=== PATIENT | female | born 1950 | race Caucasian/White ===

== ENCOUNTER → 2018-01-13 13:24 | Outpatient (CLI) | payer MEDICARE, OTHER, SELFPAY ==
[2018-01-13 13:58] LABS: Add Manual Diff / Slide Review NO; Basophils Percent Auto 0.5 % (0-2); Eosinophils Percent Auto 2.2 % (2-4); Hematocrit 40.7 % (36-46); Hemoglobin 13.7 g/dL (12.0-16.0); Lymphocytes Percent Auto 34.6 % (25-40); Mean Corpuscular HGB Conc 33.6 % (30-36); Mean Corpuscular Volume 92.3 fL (80-100); Monocytes Percent Auto 7.4 % (3-14); Neutrophils Absolute Auto 2300 /uL (3000-5900); Neutrophils Percent Auto 55.3 % (50-75); Platelet Count 155 X10^3/uL (150-400); Red Blood Cell Count 4.41 X10^6/uL (4.0-5.2); Red Cell Distribution Width 14.1 % (11.6-14.8); White Blood Cell Count 4.2 X10^3/uL (4.5-11.0)
[2018-01-13 14:23] LABS: Alanine Aminotransferase 30 IU/L (9-52); Albumin 4.4 g/dL (3.5-5.0); Albumin Globulin Ratio 1.7 (1.0-2.8); Alkaline Phosphatase 59 U/L (38-126); Aspartate Aminotransferase 29 IU/L (14-36); BUN Creatinine Ratio 22.5 (6-22); Bilirubin Total 0.6 mg/dL (0.2-1.3); Blood Urea Nitrogen 18 mg/dL (7-17); Calcium 9.4 mg/dL (8.4-10.2); Carbon Dioxide 31 mmol/L (22-32); Chloride 99 mmol/L (98-107); Estimated Glomerular Filt Rate > 60.0 mL/min (>60); Globulin 2.6 g/dL (1.7-4.1); Glucose 142 mg/dL (80-110); HEMOLYSIS < 15 (0-50); Potassium 4.4 mmol/L (3.4-5.1); Sodium 141 mmol/L (137-145)
[2018-01-13 14:28] LABS: HEMOLYSIS < 15 (0-50); Iron 139 ug/dL (37-170)
[2018-01-13 14:39] LABS: Percent Iron Saturation 44 % (15-50); Total Iron Binding Capacity 314 ug/dL (265-497); Transferrin 255 mg/dL (206-381)
[2018-01-15 15:16] LABS: Alpha Fetoprotein 4.8 ng/mL (< 6.1)
== END ==
PROVIDERS: Nurse Practitioner Gerontology; Family Provider Internal Medicine; PCP Internal Medicine; Visit Provider Internal Medicine
DX: E83.110 Hereditary hemochromatosis (principal)
CPT/HCPCS: 36415; 80053; 82105; 83540; 83550; 85025

== ENCOUNTER → 2018-03-22 13:04 | Outpatient (CLI) | payer MEDICARE, OTHER, SELFPAY ==
[2018-03-22 13:20] LABS: Add Manual Diff / Slide Review NO; Basophils Percent Auto 0.4 % (0-2); Eosinophils Percent Auto 1.1 % (2-4); Hematocrit 41.6 % (36-46); Lymphocytes Percent Auto 26.9 % (25-40); Mean Corpuscular HGB Conc 33.6 % (30-36); Mean Corpuscular Hemoglobin 31.6 PG (26-34); Mean Corpuscular Volume 94.1 fL (80-100); Monocytes Percent Auto 8.6 % (3-14); Neutrophils Absolute Auto 2800 /uL (3000-5900); Platelet Count 157 X10^3/uL (150-400); Red Blood Cell Count 4.42 X10^6/uL (4.0-5.2); Red Cell Distribution Width 13.5 % (11.6-14.8); White Blood Cell Count 4.5 X10^3/uL (4.5-11.0)
[2018-03-22 13:38] LABS: Alanine Aminotransferase 25 IU/L (9-52); Albumin 4.4 g/dL (3.5-5.0); Alkaline Phosphatase 57 U/L (38-126); Aspartate Aminotransferase 29 IU/L (14-36); BUN Creatinine Ratio 24.3 (6-22); Bilirubin Total 0.8 mg/dL (0.2-1.3); Blood Urea Nitrogen 17 mg/dL (7-17); Calcium 9.6 mg/dL (8.4-10.2); Carbon Dioxide 34 mmol/L (22-32); Chloride 101 mmol/L (98-107); Estimated Glomerular Filt Rate > 60.0 mL/min (>60); Globulin 2.2 g/dL (1.7-4.1); Glucose 135 mg/dL (80-110); HEMOLYSIS < 15 (0-50); Potassium 4.8 mmol/L (3.4-5.1); Sodium 143 mmol/L (137-145); Total Protein 6.6 g/dL (6.3-8.2)
[2018-03-22 13:44] LABS: HEMOLYSIS 16 (0-50); Iron 172 ug/dL (37-170)
[2018-03-22 13:54] LABS: Percent Iron Saturation 59 % (15-50); Total Iron Binding Capacity 291 ug/dL (265-497); Transferrin 241 mg/dL (206-381)
[2018-03-22 15:24] LABS: Zero Check Sebra Scale 0
[2018-03-22 15:25] LABS: 585 Gram Check Y; Amount Collected in g 386; Postdiastolic BP 84; Postsystolic BP 130; Prediastolic 82; Presystolic 135; Pulse 68; Site of phlebotomy RAC; Swelling N
[2018-03-22 15:26] LABS: Dizziness LIGHTHEADED
[2018-03-22 15:27] LABS: Therapeutic Phleb Comment JUICE GIVEN
[2018-03-26 14:34] LABS: Alpha Fetoprotein 4.9 ng/mL (< 6.1)
== END ==
PROVIDERS: Family Provider Internal Medicine; PCP Internal Medicine; Visit Provider Nurse Practitioner Gerontology
DX: E83.110 Hereditary hemochromatosis (principal)
CPT/HCPCS: 36415; 80053; 82105; 83540; 83550; 85025; 99195

== ENCOUNTER → 2018-06-28 12:48 | Outpatient (CLI) | payer MEDICARE, OTHER, SELFPAY ==
[2018-06-28 13:07] LABS: Add Manual Diff / Slide Review NO; Basophils Percent Auto 0.6 % (0-2); Eosinophils Percent Auto 1.8 % (2-4); Hematocrit 39.4 % (36-46); Hemoglobin 12.8 g/dL (12.0-16.0); Lymphocytes Percent Auto 27.7 % (25-40); Mean Corpuscular HGB Conc 32.5 % (30-36); Mean Corpuscular Hemoglobin 29.7 PG (26-34); Mean Corpuscular Volume 91.1 fL (80-100); Monocytes Percent Auto 7.4 % (3-14); Neutrophils Absolute Auto 2600 /uL (3000-5900); Neutrophils Percent Auto 62.5 % (50-75); Platelet Count 172 X10^3/uL (150-400); Red Blood Cell Count 4.33 X10^6/uL (4.0-5.2); Red Cell Distribution Width 13.3 % (11.6-14.8); White Blood Cell Count 4.1 X10^3/uL (4.5-11.0)
[2018-06-28 13:19] LABS: Alanine Aminotransferase 34 IU/L (9-52); Albumin 4.5 g/dL (3.5-5.0); Albumin Globulin Ratio 1.8 (1.0-2.8); Alkaline Phosphatase 58 U/L (38-126); Aspartate Aminotransferase 37 IU/L (14-36); BUN Creatinine Ratio 22.5 (6-22); Bilirubin Total 0.8 mg/dL (0.2-1.3); Blood Urea Nitrogen 18 mg/dL (7-17); Calcium 9.5 mg/dL (8.4-10.2); Carbon Dioxide 29 mmol/L (22-32); Chloride 102 mmol/L (98-107); Estimated Glomerular Filt Rate > 60.0 mL/min (>60); Globulin 2.5 g/dL (1.7-4.1); Glucose 127 mg/dL (80-110); HEMOLYSIS < 15 (0-50); Potassium 4.6 mmol/L (3.4-5.1); Sodium 142 mmol/L (137-145)
[2018-06-28 13:26] LABS: HEMOLYSIS < 15 (0-50); Iron 139 ug/dL (37-170)
[2018-06-28 13:37] LABS: Percent Iron Saturation 43 % (15-50); Total Iron Binding Capacity 323 ug/dL (265-497); Transferrin 280 mg/dL (206-381)
[2018-06-30 13:48] LABS: Alpha Fetoprotein 4.2 ng/mL (< 6.1)
== END ==
PROVIDERS: Family Provider Internal Medicine; PCP Internal Medicine; Visit Provider Nurse Practitioner Gerontology
DX: E83.110 Hereditary hemochromatosis (principal)
CPT/HCPCS: 36415; 80053; 82105; 83540; 83550; 85025

== ENCOUNTER → 2018-07-04 16:15 | Outpatient (CLI) | payer MEDICARE, OTHER, SELFPAY | PROVIDERS: PCP Internal Medicine; Visit Provider Internal Medicine Hematology & Oncology ==

== ENCOUNTER → 2018-07-30 10:26 | Outpatient (CLI) | payer MEDICARE, OTHER, SELFPAY ==
--- NOTE | 2018-07-30 | DI.MG.S_ITS ---
UNILATERAL RIGHT DIGITAL SCREENING MAMMOGRAM 3D/2D WITH CAD POST MASTECTOMY: 07/30/2018 CLINICAL: Routine screening. Personal history of left breast cancer. Family history of breast cancer. Comparison is made to exams dated: 05/01/2015 mammogram, 07/06/2017 mammogram, and 07/07/2016 mammogram - [facility]. The tissue of right breast is heterogeneously dense. This may lower the sensitivity of mammography. Current study was also evaluated with a Computer Aided Detection (CAD) system. No significant masses, calcifications, or other findings are seen in the breast. There has been no significant interval change. IMPRESSION: NEGATIVE There is no mammographic evidence of malignancy. A 1 year screening mammogram is recommended. This exam was interpreted at Station ID: [id number]. NOTE: For mammograms, a report in lay terms will be sent to the patient. Approximately 15% of breast malignancies will not be visualized mammographically. In the management of a palpable breast mass, a negative mammogram must not discourage biopsy of a clinically suspicious lesion. Electronically Signed By: Ely de la cruz/ivet:08/01/2018 10:44:33 copy to: [facility] letter sent: Normal Exam ACR BI-RADS Category 1: Negative 3341F
== END ==
PROVIDERS: PCP Internal Medicine; Visit Provider Internal Medicine Hematology & Oncology
DX: Z12.31 Encounter for screening mammogram for malignant neoplasm of breast (principal); Z85.3 Personal history of malignant neoplasm of breast; Z80.3 Family history of malignant neoplasm of breast
CPT/HCPCS: 77063; 77067

== ENCOUNTER → 2018-10-27 13:38 | Outpatient (CLI) | payer MEDICARE, OTHER, SELFPAY ==
[2018-10-27 14:41] LABS: Add Manual Diff / Slide Review NO; Basophils Absolute Auto 0 /uL (0-100); Eosinophils Absolute Auto 100 /uL (0-450); Eosinophils Percent Auto 2.4 % (2-4); Hematocrit 43.1 % (36-46); Hemoglobin 14.2 g/dL (12.0-16.0); Lymphocytes Absolute Auto 1400 /uL (1100-4500); Lymphocytes Percent Auto 34.9 % (25-40); Mean Corpuscular HGB Conc 32.9 % (30-36); Mean Corpuscular Hemoglobin 30.1 PG (26-34); Mean Corpuscular Volume 91.6 fL (80-100); Monocytes Absolute Auto 300 /uL (0-900); Neutrophils Absolute Auto 2200 /uL (1500-7000); Neutrophils Percent Auto 53.7 % (50-75); Platelet Count 157 X10^3/uL (150-400); Red Cell Distribution Width 15.3 % (11.6-14.8); White Blood Cell Count 4.1 X10^3/uL (4.5-11.0)
[2018-10-27 15:30] LABS: Iron 120 ug/dL (37-170)
[2018-10-27 16:22] LABS: Alanine Aminotransferase 36 IU/L (9-52); Albumin 4.4 g/dL (3.5-5.0); Albumin Globulin Ratio 1.8 (1.0-2.8); Alkaline Phosphatase 59 U/L (38-126); Aspartate Aminotransferase 29 IU/L (14-36); BUN Creatinine Ratio 23.3 (6-22); Bilirubin Total 0.7 mg/dL (0.2-1.3); Blood Urea Nitrogen 21 mg/dL (7-17); Calcium 9.4 mg/dL (8.4-10.2); Carbon Dioxide 30 mmol/L (22-32); Chloride 100 mmol/L (98-107); Estimated Glomerular Filt Rate > 60.0 mL/min (>60); Globulin 2.4 g/dL (1.7-4.1); Glucose 135 mg/dL (80-110); HEMOLYSIS < 15 (0-50); Potassium 4.2 mmol/L (3.4-5.1); Sodium 138 mmol/L (137-145); Total Protein 6.8 g/dL (6.3-8.2)
[2018-10-27 16:58] LABS: Ferritin 17.4 ng/mL (11.1-264)
== END ==
PROVIDERS: PCP Internal Medicine; Visit Provider Internal Medicine Hematology & Oncology
DX: D05.10 Intraductal carcinoma in situ of unspecified breast (principal)
CPT/HCPCS: 36415; 80053; 82728; 83540; 85025

== ENCOUNTER → 2019-04-25 16:42 | Outpatient (ROUT) | payer MEDICARE, OTHER, SELFPAY ==
[2019-04-25 17:06] LABS: Alanine Aminotransferase 28 IU/L (9-52); Albumin 4.1 g/dL (3.5-5.0); Alkaline Phosphatase 66 U/L (38-126); Aspartate Aminotransferase 32 IU/L (14-36); BUN Creatinine Ratio 27.1 (6-22); Blood Urea Nitrogen 19 mg/dL (7-17); Calcium 9.6 mg/dL (8.4-10.2); Carbon Dioxide 33 mmol/L (22-32); Chloride 103 mmol/L (98-107); Cholesterol 157 mg/dL (140-199); Estimated Glomerular Filt Rate > 60.0 mL/min (>60); Glucose 114 mg/dL (80-110); HDL Cholesterol 72 mg/dL (40-60); LDL Cholesterol Calculated 72 mg/dL (<100); Potassium 4.4 mmol/L (3.4-5.1); Sodium 141 mmol/L (137-145); Triglycerides 67 mg/dL (35-150)
[2019-04-25 18:19] LABS: HEMOLYSIS < 15 (0-50); Vitamin B12 628 pg/mL (239-931)
[2019-04-27 22:30] LABS: Albumin 4.1 g/dL (3.8-4.8); Alpha 1 Globulin 0.2 g/dL (0.2-0.3); Alpha 2 Globulin 0.7 g/dL (0.5-0.9); Beta 1 Globulin 0.4 g/dL (0.4-0.6); Gamma Globulin 0.6 g/dL (0.8-1.7); Protein, Total 6.3 g/dL (6.1-8.1)
[2019-04-29 18:59] LABS: Albumin 100 %; Protein/ Creatinine Ratio 68 mg/g creat (21-161); Total Urine Protein 4 mg/dL (5-24); Urine Creatinine, Random 59 mg/dL (20-275)
== END ==
PROVIDERS: Family Provider Internal Medicine; Visit Provider Internal Medicine
DX: R74.9 Abnormal serum enzyme level, unspecified (principal); E78.00 Pure hypercholesterolemia, unspecified; G58.8 Other specified mononeuropathies; E11.9 Type 2 diabetes mellitus without complications
CPT/HCPCS: 80048; 80061; 82040; 82247; 82607; 84075; 84155; 84156; 84165; 84166; 84450; 84460

== ENCOUNTER → 2019-08-15 15:49 | Outpatient (ROUT) | payer MEDICARE, OTHER, SELFPAY ==
[2019-08-15 15:52] LABS: RBC Urine None Seen (0-5/HPF)
[2019-08-15 15:56] LABS: Appearance Urine UA CLEAR; Bilirubin Urine UA NEGATIVE (NEGATIVE); Color Urine UA YELLOW; Glucose Urine UA NEGATIVE (Negative); Ketones Urine UA NEGATIVE (NEGATIVE); Leukocyte Esterase Urine UA NEGATIVE (NEGATIVE); Nitrite Urine UA NEGATIVE (Negative); Occult Blood Urine UA NEGATIVE (Negative); Protein Urine UA NEGATIVE (Negative); Urobilinogen Urine UA 0.2 E.U./dL (0.2)
[2019-08-15 16:07] LABS: pH Urine UA 6.5 (4.5-8.0)
[2019-08-15 16:08] LABS: Bacteria Urine Few (2-10); Squamous Epithelial Cell Urine 0-1 /HPF (0-5/HPF); WBC Urine 1-5/HPF (0-5/HPF)
[2019-08-15 17:03] LABS: BUN Creatinine Ratio 24.3 (6-22); Blood Urea Nitrogen 17 mg/dL (7-17); Calcium 9.6 mg/dL (8.4-10.2); Carbon Dioxide 30 mmol/L (22-32); Chloride 101 mmol/L (98-107); Estimated Glomerular Filt Rate > 60.0 mL/min (>60); Glucose 119 mg/dL (80-110); HEMOLYSIS 27 (0-50); Potassium 4.1 mmol/L (3.4-5.1); Sodium 139 mmol/L (137-145)
[2019-08-15 17:10] LABS: Potassium Urine Random 17.4 mmol/L
== END ==
PROVIDERS: Family Provider Internal Medicine; PCP Internal Medicine; Visit Provider Internal Medicine
DX: R39.15 Urgency of urination (principal)
CPT/HCPCS: 80048; 81001; 84133; 87077; 87086; 87186

== ENCOUNTER → 2019-08-16 09:35 | Outpatient (CLI) | payer MEDICARE, OTHER, SELFPAY ==
--- NOTE | 2019-08-16 | DI.US.S_ITS ---
PROCEDURE: US RENAL COMPLETE INDICATIONS: URINARY URGENCY TECHNIQUE: Real-time scanning was performed of the kidneys and bladder, with image documentation. COMPARISON: None. FINDINGS: Kidneys: Kidneys are normal in size. Right kidney measures 9.1 cm long; left kidney measures 11.0 cm long. Right renal cortical thickness is 1.0 cm; left renal cortical thickness is 1.1 cm. Renal cortical echotexture is normal. No hydronephrosis or nephrolithiasis. No suspicious solid mass lesions. Bladder: Pre-void bladder volume is 69 mL. Post-void residual is 0 mL. Pre-void images demonstrate no intraluminal masses or stones. On pre-void images, bilateral ureteral jets are noted with color Doppler interrogation. (Of note, ureteral jets may not be detectable in up to 25% of cases due to insufficient differences in specific gravity between ureteral and bladder urine). Miscellaneous: No free pelvic fluid. IMPRESSION: The no hydronephrosis or nephrolithiasis found, normal bladder function. Dictated by: Josh Arreola M.D. on 08/16/2019 at 14:38 Approved by: Josh Arreola M.D. on 08/16/2019 at 14:39
== END ==
PROVIDERS: PCP Internal Medicine; Visit Provider Internal Medicine
DX: R39.15 Urgency of urination (principal)
CPT/HCPCS: 76770

== ENCOUNTER → 2019-10-05 08:47 | Outpatient (CLI) | payer MEDICARE, OTHER, SELFPAY ==
--- NOTE | 2019-10-05 08:48 | DI.MG.S_ITS ---
UNILATERAL RIGHT DIGITAL SCREENING MAMMOGRAM 3D/2D WITH CAD POST MASTECTOMY: 10/05/2019 CLINICAL: Routine screening. Personal history of left breast cancer. Family history of breast cancer. Comparison is made to exams dated: 07/30/2018 mammogram - [facility], 07/06/2017 mammogram, and 07/07/2016 mammogram - [facility]. The tissue of right breast is heterogeneously dense. This may lower the sensitivity of mammography. Current study was also evaluated with a Computer Aided Detection (CAD) system. No significant masses, calcifications, or other findings are seen in the breast. There has been no significant interval change. IMPRESSION: NEGATIVE There is no mammographic evidence of malignancy. A 1 year screening mammogram is recommended. This exam was interpreted at Station ID: [id number]. NOTE: For mammograms, a report in lay terms will be sent to the patient. Approximately 15% of breast malignancies will not be visualized mammographically. In the management of a palpable breast mass, a negative mammogram must not discourage biopsy of a clinically suspicious lesion. Electronically Signed By: Yasmin mcfarlane/ivet:10/05/2019 16:43:58 copy to: [facility] letter sent: Normal Exam ACR BI-RADS Category 1: Negative 3341F
== END ==
PROVIDERS: PCP Internal Medicine; Referring Provider Internal Medicine; Visit Provider Internal Medicine Hematology & Oncology
DX: Z12.31 Encounter for screening mammogram for malignant neoplasm of breast (principal); Z86.000 Personal history of in-situ neoplasm of breast; Z80.3 Family history of malignant neoplasm of breast
CPT/HCPCS: 77063; 77067

== ENCOUNTER → 2019-12-12 10:12 | Outpatient (CLI) | payer MEDICARE, OTHER, SELFPAY ==
[2019-12-12 10:30] LABS: Add Manual Diff / Slide Review NO; Basophils Absolute Auto 0 /uL (0-100); Basophils Percent Auto 0.8 % (0-2); Eosinophils Absolute Auto 100 /uL (0-450); Eosinophils Percent Auto 3.1 % (2-4); Hematocrit 42.9 % (36-46); Hemoglobin 14.8 g/dL (12.0-16.0); Lymphocytes Absolute Auto 1300 /uL (1100-4500); Lymphocytes Percent Auto 32.2 % (25-40); Mean Corpuscular HGB Conc 34.6 % (30-36); Mean Corpuscular Hemoglobin 33.4 PG (26-34); Mean Corpuscular Volume 96.5 fL (80-100); Monocytes Absolute Auto 400 /uL (0-900); Neutrophils Absolute Auto 2100 /uL (1500-7000); Neutrophils Percent Auto 54.9 % (50-75); Platelet Count 137 X10^3/uL (150-400); Red Blood Cell Count 4.44 X10^6/uL (4.0-5.2); Red Cell Distribution Width 12.8 % (11.6-14.8); White Blood Cell Count 3.9 X10^3/uL (4.5-11.0)
[2019-12-12 10:41] LABS: Alanine Aminotransferase 28 IU/L (<35); Albumin 4.4 g/dL (3.5-5.0); Albumin Globulin Ratio 1.7 (1.0-2.8); Alkaline Phosphatase 70 U/L (38-126); Aspartate Aminotransferase 35 IU/L (14-36); BUN Creatinine Ratio 26.3 (6-22); Bilirubin Total 0.7 mg/dL (0.2-1.3); Blood Urea Nitrogen 20 mg/dL (7-17); Calcium 9.5 mg/dL (8.4-10.2); Carbon Dioxide 33 mmol/L (22-32); Chloride 103 mmol/L (98-107); Estimated Glomerular Filt Rate > 60.0 mL/min (>60); Globulin 2.6 g/dL (1.7-4.1); Glucose 96 mg/dL (80-110); HEMOLYSIS < 15 (0-50); Potassium 4.7 mmol/L (3.4-5.1); Sodium 140 mmol/L (137-145)
[2019-12-12 10:54] LABS: HEMOLYSIS < 15 (0-50); Iron 152 ug/dL (37-170)
[2019-12-12 11:05] LABS: Percent Iron Saturation 52 % (15-50); Total Iron Binding Capacity 291 ug/dL (265-497); Transferrin 236 mg/dL (206-381)
[2019-12-12 11:35] LABS: Ferritin 27 ng/mL (11-264)
[2020-10-03 10:08] LABS: Add Manual Diff / Slide Review NO; Basophils Absolute Auto 0 /uL (0-100); Eosinophils Absolute Auto 200 /uL (0-450); Eosinophils Percent Auto 3.6 % (2-4); Hematocrit 42.2 % (36-46); Hemoglobin 14.2 g/dL (12.0-16.0); Lymphocytes Absolute Auto 1400 /uL (1100-4500); Lymphocytes Percent Auto 31.5 % (25-40); Mean Corpuscular HGB Conc 33.6 % (30-36); Mean Corpuscular Hemoglobin 32.3 PG (26-34); Mean Corpuscular Volume 96.3 fL (80-100); Monocytes Absolute Auto 400 /uL (0-900); Monocytes Percent Auto 8.7 % (3-14); Neutrophils Absolute Auto 2400 /uL (1500-7000); Neutrophils Percent Auto 55.2 % (50-75); Platelet Count 158 X10^3/uL (150-400); Red Blood Cell Count 4.39 X10^6/uL (4.0-5.2); Red Cell Distribution Width 12.7 % (11.6-14.8); White Blood Cell Count 4.4 X10^3/uL (4.5-11.0)
[2020-10-03 10:28] LABS: HEMOLYSIS < 15 (0-50); Iron 140 ug/dL (37-170)
[2020-10-03 10:39] LABS: Percent Iron Saturation 47 % (15-50); Total Iron Binding Capacity 301 ug/dL (265-497); Transferrin 215 mg/dL (206-381)
[2020-10-03 11:12] LABS: Alanine Aminotransferase 33 IU/L (<35); Albumin 4.2 g/dL (3.5-5.0); Albumin Globulin Ratio 1.6 (1.0-2.8); Alkaline Phosphatase 66 U/L (38-126); Aspartate Aminotransferase 39 IU/L (14-36); BUN Creatinine Ratio 31.1 (6-22); Bilirubin Total 0.8 mg/dL (0.2-1.3); Blood Urea Nitrogen 23 mg/dL (7-17); Calcium 9.6 mg/dL (8.4-10.2); Carbon Dioxide 31 mmol/L (22-32); Chloride 104 mmol/L (98-107); Estimated Glomerular Filt Rate > 60.0 mL/min (>60); Globulin 2.6 g/dL (1.7-4.1); Glucose 102 mg/dL (80-110); HEMOLYSIS < 15 (0-50); Potassium 4.4 mmol/L (3.4-5.1); Sodium 139 mmol/L (137-145); Total Protein 6.8 g/dL (6.3-8.2)
[2020-10-03 11:48] LABS: Ferritin 45 ng/mL (11-264)
== END ==
PROVIDERS: PCP Internal Medicine; Referring Provider Internal Medicine Hematology & Oncology; Visit Provider Internal Medicine Hematology & Oncology
DX: D05.10 Intraductal carcinoma in situ of unspecified breast (principal)
CPT/HCPCS: 36415; 80053; 82728; 83540; 83550; 85025

== ENCOUNTER → 2020-10-07 15:40 | Outpatient (CLI) | payer MEDICARE, OTHER, SELFPAY ==
[2020-10-07 16:07] LABS: Bacteria Urine None Seen
[2020-10-07 18:44] LABS: Appearance Urine UA CLEAR; Bilirubin Urine UA NEGATIVE (NEGATIVE); Color Urine UA YELLOW; Glucose Urine UA NEGATIVE (Negative); Ketones Urine UA NEGATIVE (NEGATIVE); Leukocyte Esterase Urine UA NEGATIVE (NEGATIVE); Nitrite Urine UA NEGATIVE (Negative); Occult Blood Urine UA NEGATIVE (Negative); Protein Urine UA NEGATIVE (Negative); Urobilinogen Urine UA 0.2 E.U./dL (0.2)
[2020-10-07 18:56] LABS: RBC Urine 0-1/HPF (0-5/HPF); Squamous Epithelial Cell Urine 0-1 /HPF (0-5/HPF); WBC Urine 0-1/HPF (0-5/HPF)
== END ==
PROVIDERS: PCP Internal Medicine; Referring Provider Internal Medicine; Visit Provider Internal Medicine
DX: N39.0 Urinary tract infection, site not specified (principal)
CPT/HCPCS: 81001; 87086

== ENCOUNTER → 2020-10-17 11:04 | Outpatient (CLI) | payer MEDICARE, OTHER, SELFPAY ==
--- NOTE | 2020-10-17 11:07 | DI.MG.S_ITS ---
UNILATERAL RIGHT DIGITAL SCREENING MAMMOGRAM 3D/2D WITH CAD: 10/17/2020 CLINICAL: Routine screening. Personal history of left breast cancer. Family history of breast cancer. Comparison is made to exams dated: 10/05/2019 mammogram, 07/30/2018 mammogram - [facility], and 07/06/2017 mammogram - [facility]. The tissue of right breast is heterogeneously dense. This may lower the sensitivity of mammography. Current study was also evaluated with a Computer Aided Detection (CAD) system. There are mole markers on the right breast. No significant masses, calcifications, or other findings are seen in the breast. There has been no significant interval change. IMPRESSION: NEGATIVE There is no mammographic evidence of malignancy. A 1 year screening mammogram is recommended. This exam was interpreted at Station ID: [id number]. NOTE: For mammograms, a report in lay terms will be sent to the patient. Approximately 15% of breast malignancies will not be visualized mammographically. In the management of a palpable breast mass, a negative mammogram must not discourage biopsy of a clinically suspicious lesion. Electronically Signed By: Tima De Souza acr/penrad:10/17/2020 12:05:56 copy to: RUSH CONSTANTINO letter sent: Normal Exam ACR BI-RADS Category 1: Negative 3341F
== END ==
PROVIDERS: PCP Internal Medicine; Referring Provider Internal Medicine; Visit Provider Internal Medicine
DX: Z12.31 Encounter for screening mammogram for malignant neoplasm of breast; Z85.3 Personal history of malignant neoplasm of breast; Z80.3 Family history of malignant neoplasm of breast; M81.0 Age-related osteoporosis without current pathological fracture; Z78.0 Asymptomatic menopausal state; Z90.722 Acquired absence of ovaries, bilateral; E11.9 Type 2 diabetes mellitus without complications; Z82.62 Family history of osteoporosis
CPT/HCPCS: 77063; 77067; 77080

== ENCOUNTER → 2020-11-05 18:43 | Outpatient (ROUT) | payer MEDICARE, OTHER, SELFPAY | PROVIDERS: PCP Internal Medicine; Visit Provider Internal Medicine | DX: N39.0 Urinary tract infection, site not specified (principal) | CPT/HCPCS: 87077; 87086 ==

== ENCOUNTER 2021-04-15 16:00 | Outpatient (RCR) | payer MEDICARE, OTHER, SELFPAY ==
--- NOTE | 2021-02-18 16:00 | PT.OIE ---
Current Diagnoses Unspecified urinary incontinence (02/18/21) Past Medical History (Last Updated 05/30/20 @ 11:51 by Jessica Herrera MD) Fibroids Heavy menstrual period Herpes Osteopenia (~1997) Psoriasis (~1962) Restless leg syndrome (~1975) Rosacea (~1962) Tinnitus (~2007) Urgency of urination Vertigo Past Surgical History (Last Reviewed 05/30/20 @ 11:50 by Jessica Herrera MD) Anesthesia Breast cancer (~1997) Pseudomonas infection (~2000) Status post hysterectomy (~1996) Status post partial mastectomy (~1999) Visit Care Team Role Provider Type Evan Mott MD Attending Provider Physician Family Provider Primary Care Provider Referring Provider Specialty: Internal Medicine Address: [address] [place] [address], [facility] Email: [email or web address] Physical Therapy Initial Evaluation PT-OP-A Visit Information Start: 02/18/21 08:49 Freq: Status: Active Protocol: Document 02/18/21 16:00 [facility] (Rec: 02/18/21 16:08 [facility] [id number]) Out-Patient Physical Therapy Visit Information Visit Information Visit Type Initial Evaluation Visit Start Time 16:00 Visit Stop Time 16:45 Total Visit Minutes 45 Visit Number 1 Evaluation Information Evaluation Date 02/18/21 PT-OP-B Current Condition Start: 02/18/21 08:49 Freq: Status: Active Protocol: Document 02/18/21 16:00 [facility] (Rec: 02/18/21 16:45 [facility] [id number]) Current Condition History of Current Condition Onset Date spring Current Complaints urinary urgency and leaking with a strong urge to void History of Current Condition she had been going to strength training 2 xms per week and then she stopped doing the exercise with covid. She also did yoga two times per week. She has been hiking but did take a fall onto the right knee. Her leaking is all with urgency. When she really gets the urge is when she is drinking lots of water. She had gotten her self dehydrated in 2018. She is working now on drinking 6-8 glasses per water per day. She is now taking DHEA and estradiol. She had a hysterectomy at 48 years old. In December she felt like she had what she thought was a bladder infection but it was cultured and negative but 6 monthsl ater she was cultured again and it was positive. This caused bladder aggravation at night . Acupuncture really helped with this as it was waking her up every 3 hours. SHe hasn't had any bladder pain. Treatment Goals Patient/Caregiver Goals pts goals include eliminating urinary urgency and leakage with urgency PT-OP-C Subjective Start: 02/18/21 08:49 Freq: Status: Active Protocol: Document 02/18/21 16:00 [facility] (Rec: 02/18/21 16:09 [facility] [id number]) Patient Questionnaires Pelvic Pain and Urgency/Frequency Patient Symptom Scale Pelvic Pain Score 13 PT-OP-I Pelvic Floor Start: 02/18/21 08:49 Freq: Status: Active Protocol: Document 02/18/21 16:00 [facility] (Rec: 02/18/21 16:10 [facility] [id number]) Pelvic Floor Assessment Urine Pelvic Floor Surgery Yes: hysterectomy Urinary Symptoms Urge Sensation Other Urinary Symptoms leakage with a full bladder, strong urge to go Leakage Size Small Urine Pad Type Panty Liner Pelvic Clock Pelvic Clock 12-3 Tenderness Pelvic Clock 3-6 Guarding,Tenderness Pelvic Clock Other tightness and guarding of the left lateral wall of the levator ani, tenderness on the left side of the urethra Contraction Ability Manual Muscle Testing Left 3 Manual Muscle Testing Right 3 Manual Muscle Testing Anterior 3 Manual Muscle Testing Posterior 3 PT-OP-Q Treatments Start: 02/18/21 08:49 Freq: Status: Active Protocol: Document 02/18/21 16:00 [facility] (Rec: 02/18/21 17:55 [facility] [id number]) Therapeutic Exercises Supine Exercises single knee to chest stretch Reps/Minutes 1-2 reps with 1 min hold modified pelvic floor squat Reps/Minutes 1-2 reps holding 1-2 min Comments in supine pelvic floor contract relax Reps/Minutes 10 reps holding 5-10 seconds and relaxing 10 seconds Self-Care/Home Management Treatment Education Other Education urge deference technique taught for home PT-OP-T Assessment and Plan Start: 02/18/21 08:49 Freq: Status: Active Protocol: Document 02/18/21 16:00 [facility] (Rec: 02/25/21 14:11 [facility] [id number]) Physical Therapy Assessment Rehab Potential Rehabilitation Potential Excellent Evaluation Complexity Number of Personal Factors/Comorbidities 0 Number of Body Systems Impaired 1-2 Clinical Presentation at Evaluation Stable Impairments Impairments Activity Tolerance,Functional Activities,Strength,Tone Goals pt is able to complete a hike without leaking Impairment leaking with walking and hiking due to strong urge to void Disaster Response Director Goal (LTG) Eve is able to hike 4-5 miles without c/o leaking LTG Duration 8 weeks Decrease left lateral wall of the levator ani muscle guarding and increased tone Impairment muscle guarding and increased tone on the left lateral wall of the levator Disaster Response Director Goal (LTG) Eve is able to work on hip stretches and stretches that help relax the pelvic floor to decrease muscle guarding and spasm and improve voiding ability LTG Duration 8 weeks Pt is no longer experiencing urinary urgency and leakage Impairment urinary urgency and leakage Short Term Goal (STG) Eve is educated on the urge deference technique to help decrease bladder spasms and to allow her to make it to the bathroom prior to leaking STG Duration 4 weeks Disaster Response Director Goal (LTG) Eve reports a overall reduction in urinary urgency and leakage following urgency. LTG Duration 8 weeks Assessment Summary Assessment Eve is a 71 year old active female with chief complaints of urinary urgency and leaking with a strong urge to void. Her symptoms primary affect her when she is walking or hiking. She reports her symptoms began during covid and at that time she had stopped doing her gym exercises and yoga due to the shutdown. She reports experiencing a UTI that stayed with her for approx 6 months before she was able to obtain a antibiotic that eliminated it. She feels this aggravated her bladder and is when the urgency began. With examination today Eve is able to activate all sections of her levator ani however she is tight and guarded in the left lateral pelvic clock. She also has tender to palpation on the left side of her urethra. Eve was educated about full relaxation of the pelvic floor prior to voiding and she was educated on toileting mechanics today. She will benefit from hip stretches as well as neuro re- education of her pelvic floor for both the ability to contract but also to relax. Eve is a good candidate for PT Physical Therapy Plan Frequency and Duration Frequency of Treatment 1x/Week Duration of Treatment 8 Plan of Care Start Date 02/18/21 Plan of Care End Date 04/08/21 Therapeutic Interventions Therapeutic Interventions Home Exercise Program, Neuromuscular Re-education, Patient/Caregiver Education, Self-Care/Home Management, Therapeutic Exercises Modalities Biofeedback Next Visit Focus/Plan Next Note Type Treatment Note Next Visit Plan Begin EMG biofeedback for pelvic floor neuromuscular awareness, begin hip stretches to help with the muscle guarding and increased tone on the left lateral wall of the levator ani
--- NOTE | 2021-02-18 16:00 | PT.OPPOC ---
Physical, Occupational & Speech Therapy At [facility] Current Diagnoses Unspecified urinary incontinence (02/18/21) Visit Care Team Role Provider Type Evan Mott MD Attending Provider Physician Family Provider Primary Care Provider Referring Provider Specialty: Internal Medicine Address: [address] [place] [address], [id number] Email: [email or web address] Plan Of Care PT-OP-T Assessment and Plan Start: 02/18/21 08:49 Freq: Status: Active Protocol: Document 02/18/21 16:00 [facility] (Rec: 02/25/21 14:11 [facility] [id number]) Physical Therapy Assessment Rehab Potential Rehabilitation Potential Excellent Evaluation Complexity Number of Personal Factors/Comorbidities 0 Number of Body Systems Impaired 1-2 Clinical Presentation at Evaluation Stable Impairments Impairments Activity Tolerance,Functional Activities,Strength,Tone Goals pt is able to complete a hike without leaking Impairment leaking with walking and hiking due to strong urge to void Senior Care Goal (LTG) Eve is able to hike 4-5 miles without c/o leaking LTG Duration 8 weeks Decrease left lateral wall of the levator ani muscle guarding and increased tone Impairment muscle guarding and increased tone on the left lateral wall of the levator Senior Care Goal (LTG) Eve is able to work on hip stretches and stretches that help relax the pelvic floor to decrease muscle guarding and spasm and improve voiding ability LTG Duration 8 weeks Pt is no longer experiencing urinary urgency and leakage Impairment urinary urgency and leakage Short Term Goal (STG) Eve is educated on the urge deference technique to help decrease bladder spasms and to allow her to make it to the bathroom prior to leaking STG Duration 4 weeks Neurology Manager Goal (LTG) Eve reports a overall reduction in urinary urgency and leakage following urgency. LTG Duration 8 weeks Assessment Summary Assessment Eve is a 71 year old active female with chief complaints of urinary urgency and leaking with a strong urge to void. Her symptoms primary affect her when she is walking or hiking. She reports her symptoms began during covid and at that time she had stopped doing her gym exercises and yoga due to the shutdown. She reports experiencing a UTI that stayed with her for approx 6 months before she was able to obtain a antibiotic that eliminated it. She feels this aggravated her bladder and is when the urgency began. With examination today Eve is able to activate all sections of her levator ani however she is tight and guarded in the left lateral pelvic clock. She also has tender to palpation on the left side of her urethra. Eve was educated about full relaxation of the pelvic floor prior to voiding and she was educated on toileting mechanics today. She will benefit from hip stretches as well as neuro re- education of her pelvic floor for both the ability to contract but also to relax. Eve is a good candidate for PT Physical Therapy Plan Frequency and Duration Frequency of Treatment 1x/Week Duration of Treatment 8 Plan of Care Start Date 02/18/21 Plan of Care End Date 04/08/21 Therapeutic Interventions Therapeutic Interventions Home Exercise Program, Neuromuscular Re-education, Patient/Caregiver Education, Self-Care/Home Management, Therapeutic Exercises Modalities Biofeedback Next Visit Focus/Plan Next Note Type Treatment Note Next Visit Plan Begin EMG biofeedback for pelvic floor neuromuscular awareness, begin hip stretches to help with the muscle guarding and increased tone on the left lateral wall of the levator ani Plan of Care Dates Plan of Care Start Date 02/18/21 Plan of Care End Date 04/08/21 Electronically Signed by: Em Hu, PT 02/25/21 1830 Please Sign and Return: I have reviewed this Plan of Care and certify that the skilled therapy services above are required to meet the patient?s needs. Physician Signature Date Printed Name and Credentials Clinical Instructor Signature Printed Name and Credentials
--- NOTE | 2021-04-15 17:09 | PT.OTN ---
Current Diagnoses Unspecified urinary incontinence (04/15/21) Physical Therapy Treatment Note PT-OP-A Visit Information Start: 02/18/21 08:49 Freq: Status: Active Protocol: Document 04/15/21 15:56 [facility] (Rec: 04/15/21 16:10 [facility] [id number]) Out-Patient Physical Therapy Visit Information Visit Information Visit Type Treatment Note Visit Start Time 16:00 Visit Stop Time 16:45 Total Visit Minutes 45 Visit Number 2 Evaluation Information Evaluation Date 02/18/21 PT-OP-B Current Condition Start: 02/18/21 08:49 Freq: Status: Active Protocol: Document 02/18/21 16:00 [facility] (Rec: 02/18/21 16:45 [facility] [id number]) Current Condition History of Current Condition Onset Date spring Current Complaints urinary urgency and leaking with a strong urge to void History of Current Condition she had been going to strength training 2 xms per week and then she stopped doing the exercise with covid. She also did yoga two times per week. She has been hiking but did take a fall onto the right knee. Her leaking is all with urgency. When she really gets the urge is when she is drinking lots of water. She had gotten her self dehydrated in 2018. She is working now on drinking 6-8 glasses per water per day. She is now taking DHEA and estradiol. She had a hysterectomy at 48 years old. In December she felt like she had what she thought was a bladder infection but it was cultured and negative but 6 monthsl ater she was cultured again and it was positive. This caused bladder aggravation at night . Acupuncture really helped with this as it was waking her up every 3 hours. SHe hasn't had any bladder pain. Treatment Goals Patient/Caregiver Goals pts goals include eliminating urinary urgency and leakage with urgency PT-OP-C Subjective Start: 02/18/21 08:49 Freq: Status: Active Protocol: Document 04/15/21 15:56 [facility] (Rec: 04/15/21 16:10 [facility] [id number]) OP-PT Subjective Patient Comments Patient Comments PT reports she is doing much better and the urge deference technique has been working well. She is here because has been doing the two exercises but wants some more. She has been hiking quite a bit and as isn't experiencing the leaking. At night she knows she is not fully voiding and has to push a little bit to get it to void. Nighttime her bladder is feeling irritated and she is waking up around 4 times per night to void. Patient Reported Progress Improving PT-OP-I Pelvic Floor Start: 02/18/21 08:49 Freq: Status: Active Protocol: Document 02/18/21 16:00 [facility] (Rec: 02/18/21 16:10 [facility] [id number]) Pelvic Floor Assessment Urine Pelvic Floor Surgery Yes: hysterectomy Urinary Symptoms Urge Sensation Other Urinary Symptoms leakage with a full bladder, strong urge to go Leakage Size Small Urine Pad Type Panty Liner Pelvic Clock Pelvic Clock 12-3 Tenderness Pelvic Clock 3-6 Guarding,Tenderness Pelvic Clock Other tightness and guarding of the left lateral wall of the levator ani, tenderness on the left side of the urethra Contraction Ability Manual Muscle Testing Left 3 Manual Muscle Testing Right 3 Manual Muscle Testing Anterior 3 Manual Muscle Testing Posterior 3 PT-OP-Q Treatments Start: 02/18/21 08:49 Freq: Status: Active Protocol: Document 04/15/21 16:00 [facility] (Rec: 04/15/21 17:07 [facility] [id number]) Therapeutic Exercises Supine Exercises iliopsoas stretch in eder test position Reps/Minutes 1-2 minutes cobra stretch Reps/Minutes hold 1-2 minutes Manual Therapy Treatment Soft Tissue Mobilization manual release of the suprapubic fascia Body Location supra pubic fascia Mobilization Type Myofascial Release Intensity/Depth Moderate Body Position Hooklying Comments tightness in the suprapubic fascia and scar tissue restrictions from a previous hysterectomy Self-Care/Home Management Treatment Education Patient Education Home Exercise Program Other Education review of home exercise program and urge deference technique, pt was given information on the therawand for home PT-OP-T Assessment and Plan Start: 02/18/21 08:49 Freq: Status: Active Protocol: Document 04/15/21 16:00 [facility] (Rec: 04/15/21 17:07 [facility] [email or web address]) Physical Therapy Assessment Goals pt is able to complete a hike without leaking Impairment leaking with walking and hiking due to strong urge to void Penitentiary Goal (LTG) Eve is able to hike 4-5 miles without c/o leaking As of 04/15/21 goal met LTG Duration 8 weeks Decrease left lateral wall of the levator ani muscle guarding and increased tone Impairment muscle guarding and increased tone on the left lateral wall of the levator Penitentiary Goal (LTG) Eve is able to work on hip stretches and stretches that help relax the pelvic floor to decrease muscle guarding and spasm and improve voiding ability Good progress LTG Duration 8 weeks Pt is no longer experiencing urinary urgency and leakage Impairment urinary urgency and leakage Short Term Goal (STG) Eve is educated on the urge deference technique to help decrease bladder spasms and to allow her to make it to the bathroom prior to leaking GOAL MET STG Duration 4 weeks Color Sprayer Goal (LTG) Eve reports a overall reduction in urinary urgency and leakage following urgency. Good progress as pt is not having difficulty during the day now. Her greatest complaint is symptoms at night . LTG Duration 8 weeks Assessment Summary Assessment Eve returns to PT today after not being seen since her initial evaluation in January. She has been doing her exercises and stretches and feel these have really helped. The urge deference technique is helping with urgency during the day and she is no longer experiencing leakage with hiking. Her biggest complaint is urgency at night and bladder irritation at night. Today I worked on MFR in the suprapubic fascia and she does have scar tissue restrictions in this region from her previous hysterectomy . She was shown how to stretch to open up the fascia in the suprapubic region and given a stretch for the iliopsoas. Eve felt this was helpful. She would like to continue PT if needed and will work on these stretches at home as well as return to acupunture which she tried once and it did seem to help her sleep. Physical Therapy Plan Frequency and Duration Frequency of Treatment 1x/Week Duration of Treatment 8 Plan of Care Start Date 04/15/21 Plan of Care End Date 06/16/21 Therapeutic Interventions Therapeutic Interventions Home Exercise Program, Neuromuscular Re-education, Patient/Caregiver Education, Self-Care/Home Management, Therapeutic Exercises Modalities Biofeedback Next Visit Focus/Plan Next Note Type Treatment Note Next Visit Plan review stretches given today, MFR in the suprapubic fascia, EMG biofeedback for neuro awareness of the pelvic floor
--- NOTE | 2021-04-15 17:10 | PT.OPPOC ---
Physical, Occupational & Speech Therapy At [facility] Current Diagnoses Unspecified urinary incontinence (04/15/21) Visit Care Team Role Provider Type Evan Mott MD Attending Provider Physician Family Provider Primary Care Provider Referring Provider Specialty: Internal Medicine Address: [address] [place] [address], [id number] Email: [email or web address] Plan Of Care PT-OP-T Assessment and Plan Start: 02/18/21 08:49 Freq: Status: Active Protocol: Document 04/15/21 16:00 AMH (Rec: 04/15/21 17:07 AMH [id number]) Physical Therapy Assessment Goals pt is able to complete a hike without leaking Impairment leaking with walking and hiking due to strong urge to void Websphere Consultant Goal (LTG) Eve is able to hike 4-5 miles without c/o leaking As of 04/15/21 goal met LTG Duration 8 weeks Decrease left lateral wall of the levator ani muscle guarding and increased tone Impairment muscle guarding and increased tone on the left lateral wall of the levator Websphere Consultant Goal (LTG) Eve is able to work on hip stretches and stretches that help relax the pelvic floor to decrease muscle guarding and spasm and improve voiding ability Good progress LTG Duration 8 weeks Pt is no longer experiencing urinary urgency and leakage Impairment urinary urgency and leakage Short Term Goal (STG) Eve is educated on the urge deference technique to help decrease bladder spasms and to allow her to make it to the bathroom prior to leaking GOAL MET STG Duration 4 weeks Correction Goal (LTG) Eve reports a overall reduction in urinary urgency and leakage following urgency. Good progress as pt is not having difficulty during the day now. Her greatest complaint is symptoms at night . LTG Duration 8 weeks Assessment Summary Assessment Eve returns to PT today after not being seen since her initial evaluation in January. She has been doing her exercises and stretches and feel these have really helped. The urge deference technique is helping with urgency during the day and she is no longer experiencing leakage with hiking. Her biggest complaint is urgency at night and bladder irritation at night. Today I worked on MFR in the suprapubic fascia and she does have scar tissue restrictions in this region from her previous hysterectomy . She was shown how to stretch to open up the fascia in the suprapubic region and given a stretch for the iliopsoas. Eve felt this was helpful. She would like to continue PT if needed and will work on these stretches at home as well as return to acupunture which she tried once and it did seem to help her sleep. Physical Therapy Plan Frequency and Duration Frequency of Treatment 1x/Week Duration of Treatment 8 Plan of Care Start Date 04/15/21 Plan of Care End Date 06/16/21 Therapeutic Interventions Therapeutic Interventions Home Exercise Program, Neuromuscular Re-education, Patient/Caregiver Education, Self-Care/Home Management, Therapeutic Exercises Modalities Biofeedback Next Visit Focus/Plan Next Note Type Treatment Note Next Visit Plan review stretches given today, MFR in the suprapubic fascia, EMG biofeedback for neuro awareness of the pelvic floor Plan of Care Dates Plan of Care Start Date 04/15/21 Plan of Care End Date 06/16/21 Electronically Signed by: Em Hu, PT 04/15/21 [id number] Please Sign and Return: I have reviewed this Plan of Care and certify that the skilled therapy services above are required to meet the patient?s needs. Physician Signature Date Printed Name and Credentials Clinical Instructor Signature Printed Name and Credentials
== END 2021-08-26 08:31 ==
LOC: PHYS 16:00
PROVIDERS: Family Provider Internal Medicine; PCP Internal Medicine; Referring Provider Internal Medicine; Visit Provider Internal Medicine
DX: R32 Unspecified urinary incontinence (principal)
CPT/HCPCS: 97110; 97140; 97161; 97535

== ENCOUNTER → 2021-05-21 16:07 | Outpatient (CLI) | payer MEDICARE, OTHER, SELFPAY ==
[2021-05-21 17:42] LABS: BUN Creatinine Ratio 32.1 (6-22); Blood Urea Nitrogen 27 mg/dL (7-17); Estimated Glomerular Filt Rate > 60.0 mL/min (>60)
== END ==
PROVIDERS: Family Provider Internal Medicine; PCP Internal Medicine; Referring Provider Internal Medicine; Visit Provider Internal Medicine
DX: M81.0 Age-related osteoporosis without current pathological fracture (principal)
CPT/HCPCS: 36415; 82565; 83516; 84520

== ENCOUNTER → 2022-09-08 13:32 | Outpatient (CLI) | payer MEDICARE, OTHER, SELFPAY ==
--- NOTE | 2022-09-21 15:39 | DIAB.MNT ---
Initial Diabetes Medical Nutrition Therapy Assessment Name: Eve Arrington Date: 09/08/22 Time: 2-3p Dx: Type II Diabetes Provider: Rony Eve presents today for initial DM visit. Reports PMH of DM for 12 years. +FH with father. Also endorses h/o hemochromatosis. Eve lives on [facility] with her and dog. States she feels her HgA1c changes is mostly due to changes in exercise, not diet. States she is mindful of salt, saturated fat, and sugar intake. Avoids meat. Has been avoiding grains, but noticed unintentional weight loss with this, considering increasing some high fiber grains. Reports -10# with feeling she has lost muscle mass. States one of her main goals is healthy weight gain. Diet Recall: 730-830am: coffee, egg beaters with veggie OR bread with butter and jam, fruit OR america crunch low carb cereal 12-1p: soup and sandwich on sprouted bread with salad 6-7p: ground turkey casserole, salad OR chx with veggie, salad OR salmon burger and salad Anthropometrics: Ht: Wt: 126.6# last wt 01/2022 (reports 130# today) Physical Activity: 20,000 steps per day reported. Loves to garden. Uses elliptical. Self-Monitoring Blood Glucose: Checks FBG a couple times per month. None recently. Prior FBG were 120s. Diabetes Medications: Metformin ER 750mg ( when tried 1000mg per day had SE of soft stool) Pertinent Labs: No labs provided. Reports her last HgA1c she can remember was 6.8% Past Medical History: (Last Reviewed 10/02/21 @ 17:03 by Jessica Herrera MD) Fibroids Heavy menstrual period Herpes Osteopenia (~1997) Psoriasis (~1962) Restless leg syndrome (~1975) Rosacea (~1962) Tinnitus (~2007) Urgency of urination Vertigo Nutrition Rx: Carbohydrates: Meal; 30-45g snack: 15-30g Nutrition Diagnosis: - Unintentional weight loss r/t eliminating grains aeb pt report - Self monitoring deficit r/t no SMBG recently aeb pt report Intervention: This participant was very receptive. Provided appropriate educational handouts. Discussed the following topics: Completed intake assessment. Discussed barriers to care. carb counting review Recommended servings for carbohydrates at meals and snacks healthy weight gain strategies Importance of SMBG 1-2x per day Medication management: managing Se ADA and AACE BG goals Created SMART goals for patient self-care and success. Goals: Try taking Metformin with food Try 30-45g CHO at meals Check some 1-2 hour pc Follow-up: DARYL BOURNE follow-up in 3-4 weeks Hedy Mustafa RDN, TAYLA Certified Diabetes Care and Branch Operation Evaluation Manager P: [phone] Thank you for this referral
== END ==
PROVIDERS: Family Provider Internal Medicine; PCP Internal Medicine; Referring Provider Internal Medicine; Visit Provider Internal Medicine
DX: E11.9 Type 2 diabetes mellitus without complications (principal); Z79.84 Long term (current) use of oral hypoglycemic drugs; Z71.3 Dietary counseling and surveillance
CPT/HCPCS: 97802

== ENCOUNTER → 2022-10-06 09:05 | Outpatient (CLI) | payer MEDICARE, OTHER, SELFPAY ==
--- NOTE | 2022-10-09 11:30 | DIAB.FU ---
Diabetes Education Class Series: Diabetes Physiology and Medications Name: Eve Arrington Date: 10/06/22 Time: 940a-12p Eve presents for her first class, class 2 of 3 for DSME. States she has workout equipment at home she uses frequently. Reports FH of DM and wishes to work on more vegetables recipes. Class topics covered: ? Diabetes pathophysiology ? Discuss different types of diabetes ? Review criteria for diagnosing diabetes ? Review HgA1c measurement and associated blood sugars ? Review blood sugar monitoring safety, technique, and goals ? Discuss ways to reduce complications associated with diabetes, includes microvascular and macrovascular complications ? Review diabetes medications types, action, and side effects ? Health care visits recommended for people with T2DM ? Immunization recommended for people with T2DM ? SMART goals review Goal Set: Construct veggie recipe cook book. Follow-up: Diabetes Lifestyle and Ongoing Support Class next week Hedy Mustafa RDN, [facility] [place][NOTE 2] Registered Dietitian, Certified Diabetes Care and Interlocking Installer [phone] [email or web address]
== END ==
PROVIDERS: Family Provider Internal Medicine; PCP Internal Medicine; Referring Provider Internal Medicine; Visit Provider Internal Medicine
DX: E11.9 Type 2 diabetes mellitus without complications (principal); Z71.3 Dietary counseling and surveillance
CPT/HCPCS: G0109

== ENCOUNTER → 2023-01-29 11:48 | Outpatient (CLI) | payer MEDICARE, OTHER, SELFPAY ==
--- NOTE | 2023-01-29 11:49 | DI.RAD.S_ITS ---
Bone Density Report Name: MOHAN MCCOY Age: 73 Sex: Female Ethnicity: White Date of : 1950 Indication: postmenopausal osteoporosis; monitoring treatment; Referring Provider: AYAN PLEITEZ M.D. Study: Bone densitometry was performed. Exam Date: January 29, 2023 Accession number: [id number] Bone Density: Region BMD T-score Z-score Classification AP Spine(L1-L4) 0.774 -2.5 -0.1 Osteoporosis Femoral Neck (Left) 0.529 -2.9 -0.9 Osteoporosis Total Hip (Left) 0.667 -2.3 -0.5 Osteopenia Femoral Neck (Right) 0.537 -2.8 -0.8 Osteoporosis Total Hip (Right) 0.657 -2.3 -0.6 Osteopenia Total Hip Mean 0.662 -2.3 -0.6 Osteopenia World Health Organization criteria for BMD impression classify patients as: Normal (T-score at or above -1.0), Osteopenia (T-score between -1.0 and -2.5), or Osteoporosis (T-score at or below -2.5). 10-year Fracture Risk: FRAX not reported because: Some T-score for Spine Total or Hip Total or Femoral Neck at or below -2.5 Treated for osteoporosis Previous Exams: -- Region Exam Age BMD T-score BMD Change BMD Change Date g/cm2 vs Baseline vs Previous -- AP Spine (L1-L4) 01/29/2023 73 0.774 -2.5 0.008 (1.0%)# 0.008 (1.0%)# 10/17/2020 70 0.766 -2.6 Total Hip(Left) 01/29/2023 73 0.667 -2.3 0.001 (0.1%)# 0.001 (0.1%)# 10/17/2020 70 0.666 -2.3 Total Hip(Right) 01/29/2023 73 0.657 -2.3 0.015 (2.3%)# 0.015 (2.3%)# 10/17/2020 70 0.642 -2.5 -- *Denotes significance at 95% confidence level, LSC for AP Spine = 0.022 g/cm2, LSC for Total Hip = 0.027 g/cm2 # Denotes dissimilar scan types or analysis methods Impression: The patient has osteoporosis, based on the Left Femoral Neck T-score. No significant bone loss was observed. Discussion: PATIENT UNDER TREATMENT WITH NO SIGNIFICANT BMD LOSS SINCE LAST EXAM. In an untreated patient, BMD typically declines with age. A lack of decline or gain is usually a sign that treatment is efficacious and fracture risk is reduced. It is important to ask patients whether they are taking their medications and to encourage continued and appropriate compliance with their osteoporosis therapies to reduce fracture risk. It is also important to review their risk factors and encourage appropriate calcium and vitamin D intakes, exercise, fall prevention and other lifestyle measures. Follow-Up: Consider a repeat BMD and Vertebral Fracture Assessment (VFA) exam in 2 years or sooner if medically necessary, to reassess this patient's status. Reported by: ASIF DOE M.D. on 01/29/2023 12:56:00 PM.
[2023-01-29 13:53] LABS: Hematocrit 43.1 % (36-46); Hemoglobin 14.6 g/dL (12.0-16.0); Mean Corpuscular HGB Conc 33.9 % (30-36); Mean Corpuscular Volume 97.4 fL (80-100); Platelet Count 155 X10^3/uL (150-400); Red Blood Cell Count 4.43 X10^6/uL (4.0-5.2); Red Cell Distribution Width 13.4 % (11.6-14.8); White Blood Cell Count 5.1 X10^3/uL (4.5-11.0)
[2023-01-29 14:14] LABS: HEMOLYSIS < 15 (0-50); Iron 202 ug/dL (37-170)
[2023-01-29 14:19] LABS: Aspartate Aminotransferase 38 IU/L (14-36); BUN Creatinine Ratio 26.2 (6-22); Blood Urea Nitrogen 17 mg/dL (7-17); Calcium 9.4 mg/dL (8.4-10.2); Carbon Dioxide 27 mmol/L (22-32); Chloride 101 mmol/L (98-107); Cholesterol 155 mg/dL (140-199); Estimated Glomerular Filt Rate > 60 mL/min (>60); Glucose 116 mg/dL (80-110); HDL Cholesterol 86 mg/dL (40-60); HEMOLYSIS 24 (0-50); LDL Cholesterol Calculated 48 mg/dL (<100); Potassium 4.8 mmol/L (3.4-5.1); Sodium 135 mmol/L (137-145); Triglycerides 107 mg/dL (35-150)
[2023-01-29 14:25] LABS: Percent Iron Saturation 66 % (15-50); Total Iron Binding Capacity 306 ug/dL (265-497); Transferrin 224 mg/dL (206-381)
[2023-01-29 14:51] LABS: Ferritin 72 ng/mL (11-264)
[2023-01-29 16:29] LABS: Creatinine Urine Random 41.2 mg/dL
[2023-01-29 16:40] LABS: Microalbumin Urine Random < 0.6 mg/dL (0-1.6)
[2023-01-30 08:39] LABS: x Labcorp Estim. Avg Glu (eAG) 137 mg/dL (.); x Labcorp Hemoglobin A1c 6.4 % (4.8-5.6)
== END ==
PROVIDERS: Family Provider Internal Medicine; PCP Internal Medicine; Referring Provider Internal Medicine; Visit Provider Internal Medicine
DX: M81.0 Age-related osteoporosis without current pathological fracture (principal); E11.69 Type 2 diabetes mellitus with other specified complication; E78.2 Mixed hyperlipidemia; E83.110 Hereditary hemochromatosis; Z85.3 Personal history of malignant neoplasm of breast
CPT/HCPCS: 36415; 77080; 80048; 80061; 82043; 82570; 82728; 83036; 83540; 83550; 84450; 85027

== ENCOUNTER → 2023-04-26 13:11 | Outpatient (CLI) | payer MEDICARE, OTHER, SELFPAY ==
[2023-04-26 14:36] LABS: Hemoglobin A1C% w Est Avg Glu 6.6 % (4.0-6.0)
[2023-04-26 14:50] LABS: HEMOLYSIS < 15 (0-50); Iron 167 ug/dL (37-170)
[2023-04-26 14:54] LABS: Alanine Aminotransferase 36 IU/L (<35); Albumin 4.2 g/dL (3.5-5.0); Albumin Globulin Ratio 1.8 (1.0-2.8); Alkaline Phosphatase 70 U/L (38-126); Aspartate Aminotransferase 36 IU/L (14-36); Bilirubin Total 0.7 mg/dL (0.2-1.3); Blood Urea Nitrogen 27 mg/dL (7-17); Calcium 9.4 mg/dL (8.4-10.2); Carbon Dioxide 32 mmol/L (22-32); Chloride 101 mmol/L (98-107); Estimated Glomerular Filt Rate > 60 mL/min (>60); Globulin 2.4 g/dL (1.7-4.1); Glucose 157 mg/dL (80-110); HEMOLYSIS < 15 (0-50); Potassium 4.2 mmol/L (3.4-5.1); Sodium 137 mmol/L (137-145); Total Protein 6.6 g/dL (6.3-8.2)
[2023-04-26 15:01] LABS: Percent Iron Saturation 58 % (15-50); Total Iron Binding Capacity 288 ug/dL (265-497); Transferrin 212 mg/dL (206-381)
[2023-04-26 15:20] LABS: Vitamin D 25 Hydroxy (D3) 29.7 ng/mL (30.0-100.0)
[2023-04-26 15:26] LABS: Ferritin 66 ng/mL (11-264)
== END ==
PROVIDERS: Family Provider Internal Medicine; PCP Internal Medicine; Referring Provider Internal Medicine; Visit Provider Internal Medicine
DX: E11.69 Type 2 diabetes mellitus with other specified complication (principal); M81.0 Age-related osteoporosis without current pathological fracture; E78.5 Hyperlipidemia, unspecified; E83.110 Hereditary hemochromatosis; E55.9 Vitamin D deficiency, unspecified
CPT/HCPCS: 36415; 80053; 82306; 82728; 83036; 83540; 83550

== ENCOUNTER → 2023-06-02 10:33 | Outpatient (CLI) | payer MEDICARE, OTHER, SELFPAY ==
--- NOTE | 2023-06-02 | DI.MG.S_ITS ---
UNILATERAL RIGHT DIGITAL SCREENING MAMMOGRAM 3D/2D WITH CAD POST MASTECTOMY: 06/02/2023 CLINICAL: Routine screening. Personal history of left breast cancer. Family History of Breast Cancer. Comparison is made to exams dated: 10/17/2020 mammogram, 10/05/2019 mammogram, 07/30/2018 mammogram - [facility], and 07/06/2017 mammogram - [facility]. The right breast is heterogeneously dense, which may obscure small masses (category c / 51-75% glandular tissue). Current study was also evaluated with a Computer Aided Detection (CAD) system. No significant masses, calcifications, or other findings are seen in the breast. There has been no significant interval change. IMPRESSION: NEGATIVE There is no mammographic evidence of malignancy. A 1 year screening mammogram is recommended. This exam was interpreted at Station ID: [id number]. NOTE: For mammograms, a report in lay terms will be sent to the patient. Approximately 15% of breast malignancies will not be visualized mammographically. In the management of a palpable breast mass, a negative mammogram must not discourage biopsy of a clinically suspicious lesion. Electronically Signed By: Chalo roth/ivet:06/02/2023 12:34:32 copy to: RUSH CONSTANTINO letter sent: Normal Exam ACR BI-RADS Category 1: Negative [id number]
== END ==
PROVIDERS: Family Provider Internal Medicine; PCP Internal Medicine; Referring Provider Physician Assistant Medical; Visit Provider Physician Assistant Medical
DX: Z12.31 Encounter for screening mammogram for malignant neoplasm of breast (principal); Z85.3 Personal history of malignant neoplasm of breast; Z80.3 Family history of malignant neoplasm of breast
CPT/HCPCS: 77063; 77067

== ENCOUNTER → 2023-08-16 12:51 | Outpatient (CLI) | payer MEDICARE, OTHER, SELFPAY ==
[2023-08-16 13:50] LABS: Hematocrit 42.7 % (36-46); Hemoglobin 14.5 g/dL (12.0-16.0); Mean Corpuscular HGB Conc 34.1 % (30-36); Mean Corpuscular Hemoglobin 32.8 PG (26-34); Mean Corpuscular Volume 96.3 fL (80-100); Platelet Count 149 X10^3/uL (150-400); Red Blood Cell Count 4.43 X10^6/uL (4.0-5.2); Red Cell Distribution Width 13.4 % (11.6-14.8); White Blood Cell Count 5.5 X10^3/uL (4.5-11.0)
[2023-08-16 13:59] LABS: HEMOLYSIS < 15 (0-50); Iron 145 ug/dL (37-170)
[2023-08-16 14:02] LABS: BUN Creatinine Ratio 33.8 (6-22); Blood Urea Nitrogen 27 mg/dL (7-17); Calcium 10.1 mg/dL (8.4-10.2); Carbon Dioxide 34 mmol/L (22-32); Chloride 98 mmol/L (98-107); Estimated Glomerular Filt Rate > 60 mL/min (>60); Glucose 116 mg/dL (80-110); HEMOLYSIS < 15 (0-50); Potassium 4.2 mmol/L (3.4-5.1); Sodium 136 mmol/L (137-145)
[2023-08-16 14:13] LABS: Percent Iron Saturation 56 % (15-50); Total Iron Binding Capacity 257 ug/dL (265-497); Transferrin 239 mg/dL (206-381)
[2023-08-16 14:14] LABS: Hemoglobin A1C% w Est Avg Glu 6.6 % (4.0-6.0)
[2023-08-16 14:36] LABS: Ferritin 68 ng/mL (11-264)
[2023-08-16 14:40] LABS: Creatinine Urine Random 75.2 mg/dL
[2023-08-16 14:52] LABS: Microalbumin Urine Random < 0.6 mg/dL (0-1.6)
== END ==
LOC: LAB 12:52
PROVIDERS: Family Provider Internal Medicine; PCP Internal Medicine; Referring Provider Internal Medicine; Visit Provider Internal Medicine
DX: E11.69 Type 2 diabetes mellitus with other specified complication (principal); E78.5 Hyperlipidemia, unspecified; E83.110 Hereditary hemochromatosis
CPT/HCPCS: 36415; 80048; 82043; 82570; 82728; 83036; 83540; 83550; 85027

== ENCOUNTER → 2023-12-01 08:40 | Outpatient (CLI) | payer MEDICARE, OTHER, SELFPAY ==
[2023-12-01 09:38] LABS: Hematocrit 41.1 % (36-46); Hemoglobin 13.9 g/dL (12.0-16.0); Mean Corpuscular HGB Conc 33.7 % (30-36); Mean Corpuscular Hemoglobin 32.7 PG (26-34); Mean Corpuscular Volume 97.1 fL (80-100); Platelet Count 165 X10^3/uL (150-400); Red Blood Cell Count 4.24 X10^6/uL (4.0-5.2); Red Cell Distribution Width 12.9 % (11.6-14.8); White Blood Cell Count 4.8 X10^3/uL (4.5-11.0)
[2023-12-01 09:48] LABS: Hemoglobin A1C% w Est Avg Glu 6.8 % (4.0-6.0)
[2023-12-01 10:00] LABS: Blood Urea Nitrogen 19 mg/dL (7-17); Calcium 9.7 mg/dL (8.4-10.2); Carbon Dioxide 31 mmol/L (22-32); Chloride 105 mmol/L (98-107); Estimated Glomerular Filt Rate > 60 mL/min (>60); Glucose 108 mg/dL (80-110); HEMOLYSIS < 15 (0-50); Sodium 140 mmol/L (137-145)
[2023-12-01 10:02] LABS: HEMOLYSIS < 15 (0-50); Iron 135 ug/dL (37-170)
[2023-12-01 10:14] LABS: Percent Iron Saturation 53 % (15-50); Total Iron Binding Capacity 257 ug/dL (265-497); Transferrin 206 mg/dL (206-381)
[2023-12-01 10:30] LABS: TSH w/ Reflex to FT4 0.93 uIU/mL (0.47-4.68)
[2023-12-01 10:34] LABS: Ferritin 66 ng/mL (11-264)
[2023-12-01 10:48] LABS: Vitamin B12 796 pg/mL (239-931)
== END ==
PROVIDERS: Family Provider Internal Medicine; PCP Internal Medicine; Referring Provider Internal Medicine; Visit Provider Internal Medicine
DX: E53.8 Deficiency of other specified B group vitamins (principal); E83.110 Hereditary hemochromatosis; E78.5 Hyperlipidemia, unspecified; R94.6 Abnormal results of thyroid function studies; E11.69 Type 2 diabetes mellitus with other specified complication
CPT/HCPCS: 36415; 80048; 82607; 82728; 83036; 83540; 83550; 84443; 85027

== ENCOUNTER → 2023-12-04 16:33 | Outpatient (CLI) | payer MEDICARE, OTHER, SELFPAY | PROVIDERS: Family Provider Internal Medicine; PCP Internal Medicine; Visit Provider Nurse Practitioner Family | DX: R30.0 Dysuria (principal) | CPT/HCPCS: 87086 ==

== ENCOUNTER → 2024-01-06 17:28 | Outpatient (CLI) | payer MEDICARE, OTHER, SELFPAY ==
--- NOTE | 2024-01-06 17:32 | DI.RAD.S_ITS ---
PROCEDURE: XR CERVICAL SPINE 4V OR 5V INDICATIONS: neck pain, fall TECHNIQUE: 5 views of the cervical spine acquired. COMPARISON: None. FINDINGS: Bones: No fractures or dislocations to the T1 level. Oblique images demonstrate no bony foraminal stenoses. Disc space height loss most pronounced at C6-C7. Osteophytic lipping. Uncovertebral joint hypertrophy. Soft tissues: No prevertebral soft tissue swelling. IMPRESSION: Advanced degenerative changes at C6-C7. Dictated by: Chalo Rodgers M.D. on 01/07/2024 at 21:44 Approved by: Chalo Rodgers M.D. on 01/07/2024 at 21:46
== END ==
PROVIDERS: Family Provider Internal Medicine; PCP Internal Medicine; Referring Provider Internal Medicine; Visit Provider Internal Medicine
DX: M47.812 Spondylosis without myelopathy or radiculopathy, cervical region (principal)
CPT/HCPCS: 72050

== ENCOUNTER → 2024-01-15 12:34 | Outpatient (CLI) | payer MEDICARE, OTHER, SELFPAY ==
[2024-01-15 13:27] LABS: Bilirubin Urine UA NEGATIVE (NEGATIVE); Color Urine UA YELLOW; Glucose Urine UA NEGATIVE (Negative); Ketones Urine UA NEGATIVE (NEGATIVE); Leukocyte Esterase Urine UA 1+ (NEGATIVE); Nitrite Urine UA POSITIVE (Negative); Occult Blood Urine UA TRACE-INTACT (Negative); Protein Urine UA NEGATIVE (Negative); Urobilinogen Urine UA 0.2 E.U./dL (0.2)
[2024-01-15 13:30] LABS: Appearance Urine UA CLOUDY; Urine Volume 10mL (spun)
[2024-01-15 13:40] LABS: RBC Urine 0-1/HPF (0-5/HPF); WBC Urine 10-30/HPF (0-5/HPF)
[2024-01-15 13:41] LABS: Bacteria Urine Many (>30); Culture Indicated Urine Specimen Cultured; Squamous Epithelial Cell Urine 0-1 /HPF (0-5/HPF)
== END ==
PROVIDERS: Family Provider Internal Medicine; PCP Internal Medicine; Referring Provider Internal Medicine; Visit Provider Internal Medicine
DX: N39.0 Urinary tract infection, site not specified (principal)
CPT/HCPCS: 81001; 87077; 87086; 87186

== ENCOUNTER 2024-02-18 13:45 | Outpatient (RCR) | payer MEDICARE, OTHER, SELFPAY ==
--- NOTE | 2024-02-04 14:16 | PT.OIE ---
Current Diagnoses Spondylosis without myelopathy or radiculopathy, cervical region (02/04/24) Dizziness and giddiness (02/04/24) Strain of muscle, fascia and tendon at neck level, sequela (02/04/24) Past Medical History (Last Updated 01/06/24 @ 17:32 by Evan Mott MD) Age-related osteoporosis without current pathological fracture Atrophic vaginitis Cervical myofascial strain Chronic insomnia DJD (degenerative joint disease), cervical DM type 2 with diabetic dyslipidemia Fibroids Hamstring tendonitis of right thigh Heavy menstrual period History of breast cancer IBS (irritable bowel syndrome) Menopausal syndrome Mixed hyperlipidemia Polyneuropathy, unspecified Psoriasis (~1962) Restless leg syndrome (~1975) Rosacea (~1962) Slow transit constipation Tinnitus (~2007) Urinary incontinence Vertigo Past Surgical History (Last Updated 03/18/23 @ 11:53 by Evan Mott MD) Anesthesia Pseudomonas infection (~2000) Status post hysterectomy (~1996) Status post partial mastectomy (~1999) Visit Care Team Role Provider Type Evan Mott MD Attending Provider Physician Family Provider Primary Care Provider Referring Provider Specialty: Internal Medicine Address: [address] [place] [address] Email: [email or web address] Physical Therapy Initial Evaluation PT-OP-A Visit Information Start: 02/04/24 12:23 Freq: Status: Active Protocol: Document 02/04/24 09:00 DCW (Rec: 02/04/24 12:25 DC [id number]) Out-Patient Physical Therapy Visit Information Visit Information Visit Type Initial Evaluation Visit Start Time 09:00 Visit Stop Time 09:45 Visit Number 1 Number of TRANSPORTATION MUSEUM HELPER Visits 0 Evaluation Information Evaluation Date 02/04/24 PT-OP-B Current Condition Start: 02/04/24 12:23 Freq: Status: Active Protocol: Document 02/04/24 09:00 DCW (Rec: 02/04/24 14:00 DCW [id number]) Current Condition History of Current Condition Onset Date Life-long symptoms of dizziness Current Complaints Dizziness, deconditioning History of Current Condition Pt is a 74 year old female presenting with a referring diagnosis of cervicogenic dizziness. Pt notes she has dealt with these symptoms her entire life, but they have been affecting her more recently. Reports that a few months ago, stood up out of bed and suddenly felt that she could no longer stand/ My legs just wouldn't work. Notes she lowered herself to the floor, and her needed to help her back into bed. Since that time, she has been hesitant to do much activity, which has resulted in some deconditioning. Additionally, pt always kept herself very active, but due to COVID shut-downs, most of her classes and activities have been eliminated from her schedule. Pt comes in to vestibular therapy today to help decrease symptoms of dizziness and improve functional mobility and balance in order to return to prior level of activity. PT-OP-C Subjective Start: 02/04/24 12:23 Freq: Status: Active Protocol: Document 02/04/24 09:00 DCW (Rec: 02/04/24 14:00 DCW [id number]) OP-PT Subjective Patient Comments Patient Comments I have never fallen and I will never fall. 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 PT-OP-F Manual Assessment Start: 02/04/24 12:23 Freq: Status: Active Protocol: Document 02/04/24 09:00 DCW (Rec: 02/04/24 14:00 DCW [id number]) Manual Assessments Soft Tissue Assessment Soft Tissue Mobility Assessment Moderate-severe tone with tenderness to palpation 2/4: Pain with wincing upper traps, scalenes, levator, SCM, R>L. PT-OP-K Range of Motion Start: 02/04/24 12:23 Freq: Status: Active Protocol: Document 02/04/24 09:00 DCW (Rec: 02/04/24 14:00 DCW [id number]) Cervical Spine Range of Motion Cervical Spine Active Degrees Testing Position Sitting Flexion 55 Extension 35 Rotation Left 50 Rotation Right 50 Lateral Flexion Left 15 Lateral Flexion Right 18 PT-OP-O Vestibular Start: 02/04/24 12:23 Freq: Status: Active Protocol: Document 02/04/24 09:00 DCW (Rec: 02/04/24 14:00 DCW [id number]) Vestibular Assessment Auditory Tests Heard Test Within normal limits Rinne Test Negative Air Conduction Results Equal Visual Testing Smooth Pursuits Horizontal WNL Smooth Pursuits Vertical WNL Saccades Horizontal WNL Saccades Vertical WNL Positional Testing [place]-Hallpike Negative Left,Negative Right Rolling Test Negative Left,Negative Right PT-OP-Q Treatments Start: 02/04/24 12:23 Freq: Status: Active Protocol: Document 02/04/24 09:00 DCW (Rec: 02/04/24 12:25 DCW [id number]) Therapeutic Exercises Sitting Exercises Scalenes Sitting Exercise Name Scalene stretch - Anterior/ Posterior Comments HEP Upper Trap Sitting Exercise Name Upper Trap stretch Comments HEP PT-OP-T Assessment and Plan Start: 02/04/24 12:23 Freq: Status: Active Protocol: Document 02/04/24 09:00 DCW (Rec: 02/04/24 14:16 DCW [id number]) Physical Therapy Assessment Rehab Potential Rehabilitation Potential Good Evaluation Complexity Number of Personal Factors/Comorbidities 1-2 Number of Body Systems Impaired 4 or More Clinical Presentation at Evaluation Unstable Impairments Impairments Activity Tolerance,Balance, Functional Activities, Functional Mobility,Gait,ROM, Vestibular Goals Two Impairment Severe tone of cervical musculature and limited cervical ROM File Machine Operator Goal (LTG) Pt to exhibit increased cervical lateral flexion bilaterally to >30? in order to demonstrate improved tone management and decrease cervicogenic symptoms. LTG Duration 05/04/24 One Impairment Pt does not have an appropriate home exercise program Short Term Goal (STG) Pt to be independent and compliant with an appropriate HEP STG Duration 03/06/24 Assessment Summary Assessment Pt presents with signs and symptoms consistent with referring diagnosis of cervicogenic dizziness. Although there is no good testing to accurately rule in or out cervicogenic dysfunction, and it is more a diagnosis of exclusion, vestibular testing to was otherwise negative, and pt exhibits significant tone throughout her cervical spine and limited ROM. Pt's reports of subjective symptoms do seem to vary a bit between vertigo or light-headedness to visual disturbances, so it is a little more difficult to DDx. Due to long-standing dizziness beginning to bother her more over the last few months, pt activity tolerance has greatly decreased. Pt should benefit from cervical strengthening/ flexibility, increased activity tolerance, LE strengthening, and balance challenges, pending further balance testing that was skipped today due to time limitations. Physical Therapy Plan Frequency and Duration Frequency of Treatment 2x/Week Plan of Care Start Date 02/04/24 Plan of Care End Date 05/04/24 Therapeutic Interventions Therapeutic Interventions Balance Training,Coordination Training,Home Exercise Program ,Joint Mobilizations,Manual Therapy,Neuromuscular Re- education,Patient/Caregiver Education,Self-Care/Home Management,Soft Tissue Mobilization,Therapeutic Activities,Therapeutic Exercises,Vestibular Rehabilitation Next Visit Focus/Plan Next Note Type Treatment Note Next Visit Plan Static/dynamic balance testing , cervical strengthening, flexibility, activity tolerance
--- NOTE | 2024-02-04 14:17 | PT.OPPOC ---
Physical, Occupational & Speech Therapy At [facility] Current Diagnoses Spondylosis without myelopathy or radiculopathy, cervical region (02/04/24) Dizziness and giddiness (02/04/24) Strain of muscle, fascia and tendon at neck level, sequela (02/04/24) Visit Care Team Role Provider Type Evan Mott MD Attending Provider Physician Family Provider Primary Care Provider Referring Provider Specialty: Internal Medicine Address: [address] [place] [address], [facility] Email: [email or web address] Plan Of Care PT-OP-T Assessment and Plan Start: 02/04/24 12:23 Freq: Status: Active Protocol: Document 02/04/24 09:00 DCW (Rec: 02/04/24 14:16 DCW [id number]) Physical Therapy Assessment Rehab Potential Rehabilitation Potential Good Evaluation Complexity Number of Personal Factors/Comorbidities 1-2 Number of Body Systems Impaired 4 or More Clinical Presentation at Evaluation Unstable Impairments Impairments Activity Tolerance,Balance, Functional Activities, Functional Mobility,Gait,ROM, Vestibular Goals Two Impairment Severe tone of cervical musculature and limited cervical ROM Senior Living Goal (LTG) Pt to exhibit increased cervical lateral flexion bilaterally to >30? in order to demonstrate improved tone management and decrease cervicogenic symptoms. LTG Duration 05/04/24 One Impairment Pt does not have an appropriate home exercise program Short Term Goal (STG) Pt to be independent and compliant with an appropriate HEP STG Duration 03/06/24 Assessment Summary Assessment Pt presents with signs and symptoms consistent with referring diagnosis of cervicogenic dizziness. Although there is no good testing to accurately rule in or out cervicogenic dysfunction, and it is more a diagnosis of exclusion, vestibular testing to was otherwise negative, and pt exhibits significant tone throughout her cervical spine and limited ROM. Pt's reports of subjective symptoms do seem to vary a bit between vertigo or light-headedness to visual disturbances, so it is a little more difficult to DDx. Due to long-standing dizziness beginning to bother her more over the last few months, pt activity tolerance has greatly decreased. Pt should benefit from cervical strengthening/ flexibility, increased activity tolerance, LE strengthening, and balance challenges, pending further balance testing that was skipped today due to time limitations. Physical Therapy Plan Frequency and Duration Frequency of Treatment 2x/Week Plan of Care Start Date 02/04/24 Plan of Care End Date 05/04/24 Therapeutic Interventions Therapeutic Interventions Balance Training,Coordination Training,Home Exercise Program ,Joint Mobilizations,Manual Therapy,Neuromuscular Re- education,Patient/Caregiver Education,Self-Care/Home Management,Soft Tissue Mobilization,Therapeutic Activities,Therapeutic Exercises,Vestibular Rehabilitation Next Visit Focus/Plan Next Note Type Treatment Note Next Visit Plan Static/dynamic balance testing , cervical strengthening, flexibility, activity tolerance Plan of Care Dates Plan of Care Start Date 02/04/24 Plan of Care End Date 05/04/24 Electronically Signed by: Cj Huggins, PT 02/04/24 [id number] If you are in agreement with this Plan of Care, please return a signed and dated copy. I have reviewed this Plan of Care and certify that the skilled therapy services above are required to meet the patient?s needs. Physician Signature Date Printed Name and Credentials Clinical Instructor Signature Printed Name and Credentials
--- NOTE | 2024-02-11 14:39 | PT.OTN ---
Current Diagnoses Spondylosis without myelopathy or radiculopathy, cervical region (02/11/24) Dizziness and giddiness (02/11/24) Strain of muscle, fascia and tendon at neck level, sequela (02/11/24) Physical Therapy Treatment Note PT-OP-A Visit Information Start: 02/04/24 12:23 Freq: Status: Active Protocol: Document 02/11/24 13:45 DCW (Rec: 02/11/24 14:39 DCW [id number]) Out-Patient Physical Therapy Visit Information Visit Information Visit Type Treatment Note Visit Start Time 13:45 Visit Stop Time 14:30 Visit Number 2 Number of JANITORIAL ASSISTANT Visits 0 Evaluation Information Evaluation Date 02/04/24 PT-OP-B Current Condition Start: 02/04/24 12:23 Freq: Status: Active Protocol: Document 02/04/24 09:00 DCW (Rec: 02/04/24 14:00 DCW [id number]) Current Condition History of Current Condition Onset Date Life-long symptoms of dizziness Current Complaints Dizziness, deconditioning History of Current Condition Pt is a 74 year old female presenting with a referring diagnosis of cervicogenic dizziness. Pt notes she has dealt with these symptoms her entire life, but they have been affecting her more recently. Reports that a few months ago, stood up out of bed and suddenly felt that she could no longer stand/ My legs just wouldn't work. Notes she lowered herself to the floor, and her needed to help her back into bed. Since that time, she has been hesitant to do much activity, which has resulted in some deconditioning. Additionally, pt always kept herself very active, but due to COVID shut-downs, most of her classes and activities have been eliminated from her schedule. Pt comes in to vestibular therapy today to help decrease symptoms of dizziness and improve functional mobility and balance in order to return to prior level of activity. PT-OP-C Subjective Start: 02/04/24 12:23 Freq: Status: Active Protocol: Document 02/11/24 13:45 DCW (Rec: 02/11/24 14:39 DCW [id number]) OP-PT Subjective Patient Comments Patient Comments Stretching has been feeling pretty good, overdid it one time. PT-OP-D Balance Start: 02/04/24 12:23 Freq: Status: Active Protocol: Document 02/11/24 13:45 DCW (Rec: 02/11/24 14:39 DCW [id number]) Acevedo Balance Assessment Evaluation Sitting to Standing Ability Independent w/out Hands Unsupported Stance Safely- 2 minutes Sitting Unsupported, Feet on Floor Safely- 2 minutes Standing to Sitting Ability Safely, Minimal Hand Use Transfer Ability Safely, Minimal Hand Use Unsupported Stance- Eyes Closed Safely, 10 seconds Unsupported Stance- Eyes Open Independent, 1 minute Reaching Forward Standing Confidently, 10 inches Pick- Up Object From Floor Independent/Safe Look Behind Shoulder - Standing Shifts Weight Unilateral Turning 360 Degrees Turns slowly, but safely Unsupported Stance, Alternating Feet on (I)- 8 Steps in 20 secs Stair Unsupported Tandem Stance Holds Tandem- 30 seconds Unilateral Leg Stance Lifts Leg/Holds > 3 secs Total Score Acevedo Total Score (out of 56 points) 50 Acevedo Impairment Rating 1 to 19% Impaired (Score 45-55 ) PT-OP-E Functional Tests Start: 02/11/24 13:49 Freq: Status: Active Protocol: Document 02/11/24 13:45 DCW (Rec: 02/11/24 14:39 DCW [id number]) Functional Tests Functional Gait Assessment Score 21/30 Functional Gait Assessment Impairment 20 to <40% Impaired (Score 19- Rating 24) PT-OP-F Manual Assessment Start: 02/04/24 12:23 Freq: Status: Active Protocol: Document 02/04/24 09:00 DCW (Rec: 02/04/24 14:00 DCW [id number]) Manual Assessments Soft Tissue Assessment Soft Tissue Mobility Assessment Moderate-severe tone with tenderness to palpation 2/4: Pain with wincing upper traps, scalenes, levator, SCM, R>L. PT-OP-K Range of Motion Start: 02/04/24 12:23 Freq: Status: Active Protocol: Document 02/04/24 09:00 DCW (Rec: 02/04/24 14:00 DCW [id number]) Cervical Spine Range of Motion Cervical Spine Active Degrees Testing Position Sitting Flexion 55 Extension 35 Rotation Left 50 Rotation Right 50 Lateral Flexion Left 15 Lateral Flexion Right 18 PT-OP-O Vestibular Start: 02/04/24 12:23 Freq: Status: Active Protocol: Document 02/04/24 09:00 DCW (Rec: 02/04/24 14:00 DCW [id number]) Vestibular Assessment Auditory Tests Heard Test Within normal limits Rinne Test Negative Air Conduction Results Equal Visual Testing Smooth Pursuits Horizontal WNL Smooth Pursuits Vertical WNL Saccades Horizontal WNL Saccades Vertical WNL Positional Testing [place]-Hallpike Negative Left,Negative Right Rolling Test Negative Left,Negative Right PT-OP-Q Treatments Start: 02/04/24 12:23 Freq: Status: Active Protocol: Document 02/11/24 13:45 DCW (Rec: 02/11/24 14:39 DCW [id number]) Manual Therapy Treatment Consent Patient gave verbal consent for manual Yes treatment Soft Tissue Mobilization Cervical Spine Body Location Cervical paraspinals, UT, Scalenes, Levator, Suboccipitals Mobilization Type Strumming,Sustained Pressure Intensity/Depth Moderate Body Position Supine Manual Traction Cervical Details Cervical Traction Body Position Hooklying PT-OP-T Assessment and Plan Start: 02/04/24 12:23 Freq: Status: Active Protocol: Document 02/11/24 13:45 DCW (Rec: 02/11/24 14:39 DCW [id number]) Physical Therapy Assessment Impairments Impairments Activity Tolerance,Balance, Functional Activities, Functional Mobility,Gait,ROM, Vestibular Goals Two Impairment Severe tone of cervical musculature and limited cervical ROM Eyeglass Frame Truer Goal (LTG) Pt to exhibit increased cervical lateral flexion bilaterally to >30? in order to demonstrate improved tone management and decrease cervicogenic symptoms. LTG Duration 05/04/24 One Impairment Pt does not have an appropriate home exercise program Short Term Goal (STG) Pt to be independent and compliant with an appropriate HEP STG Duration 03/06/24 Assessment Summary Assessment Pt did well with balance testing today, 50/56 on Acevedo, no concerns regarding falls risk. Did score 21/30 on FGA, which is slightly lower than expected for age group. Difficulty with EC ambulation and retro ambulation. Good response to STM, pt felt less unstable leaving clinic today. Physical Therapy Plan Frequency and Duration Frequency of Treatment 2x/Week Plan of Care Start Date 02/04/24 Plan of Care End Date 05/04/24 Therapeutic Interventions Therapeutic Interventions Balance Training,Coordination Training,Home Exercise Program ,Joint Mobilizations,Manual Therapy,Neuromuscular Re- education,Patient/Caregiver Education,Self-Care/Home Management,Soft Tissue Mobilization,Therapeutic Activities,Therapeutic Exercises,Vestibular Rehabilitation Next Visit Focus/Plan Next Note Type Treatment Note Next Visit Plan Static/dynamic balance testing , cervical strengthening, flexibility, activity tolerance
--- NOTE | 2024-02-18 14:30 | PT.OTN ---
Current Diagnoses Spondylosis without myelopathy or radiculopathy, cervical region (02/18/24) Dizziness and giddiness (02/18/24) Strain of muscle, fascia and tendon at neck level, sequela (02/18/24) Physical Therapy Treatment Note PT-OP-A Visit Information Start: 02/04/24 12:23 Freq: Status: Active Protocol: Document 02/18/24 13:45 DCW (Rec: 02/18/24 14:30 DCW [id number]) Out-Patient Physical Therapy Visit Information Visit Information Visit Type Treatment Note Visit Start Time 13:45 Visit Stop Time 14:30 Visit Number 3 Number of FRAME BUILDER Visits 0 Evaluation Information Evaluation Date 02/04/24 PT-OP-B Current Condition Start: 02/04/24 12:23 Freq: Status: Active Protocol: Document 02/04/24 09:00 DCW (Rec: 02/04/24 14:00 DCW [id number]) Current Condition History of Current Condition Onset Date Life-long symptoms of dizziness Current Complaints Dizziness, deconditioning History of Current Condition Pt is a 74 year old female presenting with a referring diagnosis of cervicogenic dizziness. Pt notes she has dealt with these symptoms her entire life, but they have been affecting her more recently. Reports that a few months ago, stood up out of bed and suddenly felt that she could no longer stand/ My legs just wouldn't work. Notes she lowered herself to the floor, and her needed to help her back into bed. Since that time, she has been hesitant to do much activity, which has resulted in some deconditioning. Additionally, pt always kept herself very active, but due to COVID shut-downs, most of her classes and activities have been eliminated from her schedule. Pt comes in to vestibular therapy today to help decrease symptoms of dizziness and improve functional mobility and balance in order to return to prior level of activity. PT-OP-C Subjective Start: 02/04/24 12:23 Freq: Status: Active Protocol: Document 02/18/24 13:45 DCW (Rec: 02/18/24 14:30 DCW [id number]) OP-PT Subjective Patient Comments Patient Comments My afternoons are getting better, my mornings are about the same. PT-OP-D Balance Start: 02/04/24 12:23 Freq: Status: Active Protocol: Document 02/11/24 13:45 DCW (Rec: 02/11/24 14:39 DCW [id number]) Acevedo Balance Assessment Evaluation Sitting to Standing Ability Independent w/out Hands Unsupported Stance Safely- 2 minutes Sitting Unsupported, Feet on Floor Safely- 2 minutes Standing to Sitting Ability Safely, Minimal Hand Use Transfer Ability Safely, Minimal Hand Use Unsupported Stance- Eyes Closed Safely, 10 seconds Unsupported Stance- Eyes Open Independent, 1 minute Reaching Forward Standing Confidently, 10 inches Pick- Up Object From Floor Independent/Safe Look Behind Shoulder - Standing Shifts Weight Unilateral Turning 360 Degrees Turns slowly, but safely Unsupported Stance, Alternating Feet on (I)- 8 Steps in 20 secs Stair Unsupported Tandem Stance Holds Tandem- 30 seconds Unilateral Leg Stance Lifts Leg/Holds > 3 secs Total Score Acevedo Total Score (out of 56 points) 50 Acevedo Impairment Rating 1 to 19% Impaired (Score 45-55 ) PT-OP-E Functional Tests Start: 02/11/24 13:49 Freq: Status: Active Protocol: Document 02/11/24 13:45 DCW (Rec: 02/11/24 14:39 DCW [id number]) Functional Tests Functional Gait Assessment Score 21/30 Functional Gait Assessment Impairment 20 to <40% Impaired (Score 19- Rating 24) PT-OP-F Manual Assessment Start: 02/04/24 12:23 Freq: Status: Active Protocol: Document 02/04/24 09:00 DCW (Rec: 02/04/24 14:00 DCW [id number]) Manual Assessments Soft Tissue Assessment Soft Tissue Mobility Assessment Moderate-severe tone with tenderness to palpation 2/4: Pain with wincing upper traps, scalenes, levator, SCM, R>L. PT-OP-K Range of Motion Start: 02/04/24 12:23 Freq: Status: Active Protocol: Document 02/04/24 09:00 DCW (Rec: 02/04/24 14:00 DCW [id number]) Cervical Spine Range of Motion Cervical Spine Active Degrees Testing Position Sitting Flexion 55 Extension 35 Rotation Left 50 Rotation Right 50 Lateral Flexion Left 15 Lateral Flexion Right 18 PT-OP-O Vestibular Start: 02/04/24 12:23 Freq: Status: Active Protocol: Document 02/04/24 09:00 DCW (Rec: 07/12/24 14:00 DCW [id number]) Vestibular Assessment Auditory Tests Heard Test Within normal limits Rinne Test Negative Air Conduction Results Equal Visual Testing Smooth Pursuits Horizontal WNL Smooth Pursuits Vertical WNL Saccades Horizontal WNL Saccades Vertical WNL Positional Testing [place]-Hallpike Negative Left,Negative Right Rolling Test Negative Left,Negative Right PT-OP-Q Treatments Start: 02/04/24 12:23 Freq: Status: Active Protocol: Document 02/18/24 13:45 DCW (Rec: 02/18/24 14:30 DCW [id number]) Gym Equipment Shuttle Balance Red Details WBOS, Staggered Manual Therapy Treatment Consent Patient gave verbal consent for manual Yes treatment Soft Tissue Mobilization Cervical Spine Body Location Cervical paraspinals, UT, Scalenes, Levator, Suboccipitals Mobilization Type Strumming,Sustained Pressure Intensity/Depth Moderate Body Position Supine Manual Traction Cervical Details Cervical Traction Body Position Hooklying Neuro Re-Education Treatment Balance Activities Dynamic Gait Details Head turns, Tandem Gait Comments 90 bpm for head turns PT-OP-T Assessment and Plan Start: 02/04/24 12:23 Freq: Status: Active Protocol: Document 02/18/24 13:45 DCW (Rec: 02/18/24 14:30 DCW [id number]) Physical Therapy Assessment Impairments Impairments Activity Tolerance,Balance, Functional Activities, Functional Mobility,Gait,ROM, Vestibular Goals Two Impairment Severe tone of cervical musculature and limited cervical ROM Halfway Goal (LTG) Pt to exhibit increased cervical lateral flexion bilaterally to >30? in order to demonstrate improved tone management and decrease cervicogenic symptoms. LTG Duration 05/04/24 One Impairment Pt does not have an appropriate home exercise program Short Term Goal (STG) Pt to be independent and compliant with an appropriate HEP STG Duration 03/06/24 Assessment Summary Assessment Good response to STM/traction, decreased symptoms. Required repeated instruction for shuttle balance and attempting to stabilize platform. Physical Therapy Plan Frequency and Duration Frequency of Treatment 2x/Week Plan of Care Start Date 02/04/24 Plan of Care End Date 05/04/24 Therapeutic Interventions Therapeutic Interventions Balance Training,Coordination Training,Home Exercise Program ,Joint Mobilizations,Manual Therapy,Neuromuscular Re- education,Patient/Caregiver Education,Self-Care/Home Management,Soft Tissue Mobilization,Therapeutic Activities,Therapeutic Exercises,Vestibular Rehabilitation Next Visit Focus/Plan Next Note Type Treatment Note Next Visit Plan Static/dynamic balance testing , cervical strengthening, flexibility, activity tolerance
--- NOTE | 2024-03-15 15:16 | PT.OPDS ---
Current Diagnoses Spondylosis without myelopathy or radiculopathy, cervical region (02/18/24) Dizziness and giddiness (02/18/24) Strain of muscle, fascia and tendon at neck level, sequela (02/18/24) Visit Care Team Role Provider Type Evan Mott MD Attending Provider Physician Family Provider Primary Care Provider Referring Provider Specialty: Internal Medicine Address: [address] [place] [address], [facility] Email: [email or web address] Visit Number Visit Number 3 Discharge Summary PT-OP-B Current Condition Start: 02/04/24 12:23 Freq: Status: Active Protocol: Document 02/04/24 09:00 DCW (Rec: 02/04/24 14:00 DCW [id number]) Current Condition History of Current Condition Onset Date Life-long symptoms of dizziness Current Complaints Dizziness, deconditioning History of Current Condition Pt is a 74 year old female presenting with a referring diagnosis of cervicogenic dizziness. Pt notes she has dealt with these symptoms her entire life, but they have been affecting her more recently. Reports that a few months ago, stood up out of bed and suddenly felt that she could no longer stand/ My legs just wouldn't work. Notes she lowered herself to the floor, and her needed to help her back into bed. Since that time, she has been hesitant to do much activity, which has resulted in some deconditioning. Additionally, pt always kept herself very active, but due to COVID shut-downs, most of her classes and activities have been eliminated from her schedule. Pt comes in to vestibular therapy today to help decrease symptoms of dizziness and improve functional mobility and balance in order to return to prior level of activity. PT-OP-C Subjective Start: 02/04/24 12:23 Freq: Status: Active Protocol: Document 02/18/24 13:45 DCW (Rec: 02/18/24 14:30 DCW [id number]) OP-PT Subjective Patient Comments Patient Comments My afternoons are getting better, my mornings are about the same. PT-OP-D Balance Start: 02/04/24 12:23 Freq: Status: Active Protocol: Document 02/11/24 13:45 DCW (Rec: 02/11/24 14:39 DCW [id number]) Acevedo Balance Assessment Evaluation Sitting to Standing Ability Independent w/out Hands Unsupported Stance Safely- 2 minutes Sitting Unsupported, Feet on Floor Safely- 2 minutes Standing to Sitting Ability Safely, Minimal Hand Use Transfer Ability Safely, Minimal Hand Use Unsupported Stance- Eyes Closed Safely, 10 seconds Unsupported Stance- Eyes Open Independent, 1 minute Reaching Forward Standing Confidently, 10 inches Pick- Up Object From Floor Independent/Safe Look Behind Shoulder - Standing Shifts Weight Unilateral Turning 360 Degrees Turns slowly, but safely Unsupported Stance, Alternating Feet on (I)- 8 Steps in 20 secs Stair Unsupported Tandem Stance Holds Tandem- 30 seconds Unilateral Leg Stance Lifts Leg/Holds > 3 secs Total Score Acevedo Total Score (out of 56 points) 50 Acevedo Impairment Rating 1 to 19% Impaired (Score 45-55 ) PT-OP-E Functional Tests Start: 02/11/24 13:49 Freq: Status: Active Protocol: Document 02/11/24 13:45 DCW (Rec: 02/11/24 14:39 DCW [id number]) Functional Tests Functional Gait Assessment Score 21/30 Functional Gait Assessment Impairment 20 to <40% Impaired (Score 19- Rating 24) PT-OP-F Manual Assessment Start: 02/04/24 12:23 Freq: Status: Active Protocol: Document 02/04/24 09:00 DCW (Rec: 02/04/24 14:00 DCW [id number]) Manual Assessments Soft Tissue Assessment Soft Tissue Mobility Assessment Moderate-severe tone with tenderness to palpation 2/4: Pain with wincing upper traps, scalenes, levator, SCM, R>L. PT-OP-K Range of Motion Start: 02/04/24 12:23 Freq: Status: Active Protocol: Document 02/04/24 09:00 DCW (Rec: 02/04/24 14:00 DCW [id number]) Cervical Spine Range of Motion Cervical Spine Active Degrees Testing Position Sitting Flexion 55 Extension 35 Rotation Left 50 Rotation Right 50 Lateral Flexion Left 15 Lateral Flexion Right 18 PT-OP-O Vestibular Start: 02/04/24 12:23 Freq: Status: Active Protocol: Document 02/04/24 09:00 DCW (Rec: 02/04/24 14:00 DCW [id number]) Vestibular Assessment Auditory Tests Heard Test Within normal limits Rinne Test Negative Air Conduction Results Equal Visual Testing Smooth Pursuits Horizontal WNL Smooth Pursuits Vertical WNL Saccades Horizontal WNL Saccades Vertical WNL Positional Testing [place]-Hallpike Negative Left,Negative Right Rolling Test Negative Left,Negative Right PT-OP-T Assessment and Plan Start: 02/04/24 12:23 Freq: Status: Active Protocol: Document 03/15/24 15:14 DCW (Rec: 03/15/24 15:16 DCW [id number]) Physical Therapy Assessment Assessment Summary Assessment Pt was on waitlist to return to PT following trip, but when called, requested discharge, reports she is attending PT elsewhere. Pt will be discharged at this time. Physical Therapy Plan Discharge Physical Therapy Discharge Reasons Patient Request Next Visit Focus/Plan Next Note Type Discharge Summary
== END 2024-04-11 09:39 | disposition home or self-care (01) ==
LOC: PHYS 13:45
PROVIDERS: Family Provider Internal Medicine; PCP Internal Medicine; Referring Provider Internal Medicine; Visit Provider Internal Medicine
DX: R42 Dizziness and giddiness (principal); S16.1XXS Strain of muscle, fascia and tendon at neck level, sequela; M47.812 Spondylosis without myelopathy or radiculopathy, cervical region
CPT/HCPCS: 97110; 97112; 97140; 97162

== ENCOUNTER → 2024-04-18 08:22 | Outpatient (CLI) | payer MEDICARE, OTHER, SELFPAY ==
[2024-04-18 10:21] LABS: Hematocrit 41.1 % (36-46); Hemoglobin 13.9 g/dL (12.0-16.0); Mean Corpuscular HGB Conc 33.9 % (30-36); Mean Corpuscular Hemoglobin 32.8 PG (26-34); Platelet Count 151 X10^3/uL (150-400); Red Blood Cell Count 4.24 X10^6/uL (4.0-5.2); Red Cell Distribution Width 12.8 % (11.6-14.8); White Blood Cell Count 5.1 X10^3/uL (4.5-11.0)
[2024-04-18 10:25] LABS: Appearance Urine UA CLEAR; Bilirubin Urine UA NEGATIVE (NEGATIVE); Color Urine UA YELLOW; Glucose Urine UA NEGATIVE (Negative); Ketones Urine UA NEGATIVE (NEGATIVE); Leukocyte Esterase Urine UA NEGATIVE (NEGATIVE); Nitrite Urine UA NEGATIVE (Negative); Occult Blood Urine UA NEGATIVE (Negative); Protein Urine UA NEGATIVE (Negative); Urobilinogen Urine UA 0.2 E.U./dL (0.2)
[2024-04-18 10:26] LABS: pH Urine UA 6.5 (4.5-8.0)
[2024-04-18 10:39] LABS: Bacteria Urine Few (2-10); Culture Indicated Urine Cult Not Indicated; RBC Urine None Seen (0-5/HPF); Squamous Epithelial Cell Urine 0-1 /HPF (0-5/HPF); Urine Volume 10mL (spun); WBC Urine 0-1/HPF (0-5/HPF)
[2024-04-18 10:47] LABS: Hemoglobin A1C% w Est Avg Glu 6.4 % (4.0-6.0)
[2024-04-18 10:50] LABS: Iron 141 ug/dL (37-170)
[2024-04-18 10:57] LABS: Aspartate Aminotransferase 30 IU/L (14-36); BUN Creatinine Ratio 25.3 (6-22); Blood Urea Nitrogen 19 mg/dL (7-17); Calcium 9.3 mg/dL (8.4-10.2); Carbon Dioxide 28 mmol/L (22-32); Chloride 104 mmol/L (98-107); Cholesterol 162 mg/dL (140-199); Estimated Glomerular Filt Rate > 60 mL/min (>60); Glucose 112 mg/dL (80-110); HDL Cholesterol 70 mg/dL (40-60); HEMOLYSIS < 15 (0-50); LDL Cholesterol Calculated 75 mg/dL (<100); Potassium 4.2 mmol/L (3.4-5.1); Sodium 137 mmol/L (137-145); Triglycerides 86 mg/dL (35-150)
[2024-04-18 11:04] LABS: Percent Iron Saturation 52 % (15-50); Total Iron Binding Capacity 273 ug/dL (265-497)
[2024-04-18 11:05] LABS: Creatinine Urine Random 64.63 mg/dL
[2024-04-18 11:10] LABS: Microalbumin Urine Random < 0.6 mg/dL (0-1.6)
[2024-04-18 11:12] LABS: HEMOLYSIS 27 (0-50); Transferrin 205 mg/dL (206-381)
[2024-04-18 16:34] LABS: Ferritin 86 ng/mL (11-264)
== END ==
PROVIDERS: Family Provider Internal Medicine; PCP Internal Medicine; Referring Provider Internal Medicine; Visit Provider Internal Medicine
DX: E11.69 Type 2 diabetes mellitus with other specified complication (principal); E78.5 Hyperlipidemia, unspecified; E83.110 Hereditary hemochromatosis; E78.2 Mixed hyperlipidemia; Z87.440 Personal history of urinary (tract) infections; R32 Unspecified urinary incontinence
CPT/HCPCS: 36415; 80048; 80061; 81001; 82043; 82570; 82728; 83036; 83540; 83550; 84450; 85027

== ENCOUNTER → 2024-06-01 10:09 | Outpatient (CLI) | payer MEDICARE, OTHER, SELFPAY ==
[2024-06-01 12:06] LABS: Appearance Urine UA CLOUDY; Bilirubin Urine UA NEGATIVE (NEGATIVE); Color Urine UA YELLOW; Glucose Urine UA NEGATIVE (Negative); Ketones Urine UA NEGATIVE (NEGATIVE); Leukocyte Esterase Urine UA 3+ (NEGATIVE); Nitrite Urine UA NEGATIVE (Negative); Occult Blood Urine UA TRACE-INTACT (Negative); Protein Urine UA NEGATIVE (Negative); Specific Gravity Urine UA <=1.005 (1.000-1.035); Urobilinogen Urine UA 0.2 E.U./dL (0.2)
[2024-06-01 12:23] LABS: Bacteria Urine Many (>30); RBC Urine None Seen (0-5/HPF); Squamous Epithelial Cell Urine 10-30 /HPF (0-5/HPF); Urine Volume 10mL (spun); WBC Urine 30-100/HPF (0-5/HPF)
[2024-06-01 12:24] LABS: Culture Indicated Urine Specimen Cultured
== END ==
PROVIDERS: Family Provider Internal Medicine; PCP Internal Medicine; Referring Provider Nurse Practitioner Family; Visit Provider Nurse Practitioner Family
DX: N39.0 Urinary tract infection, site not specified (principal)
CPT/HCPCS: 81001; 87086

== ENCOUNTER → 2024-07-03 09:57 | Outpatient (CLI) | payer MEDICARE, OTHER, SELFPAY ==
--- NOTE | 2024-07-03 12:53 | DI.MG.S_ITS ---
UNILATERAL RIGHT DIGITAL SCREENING MAMMOGRAM 3D/2D WITH CAD POST MASTECTOMY: 07/03/2024 CLINICAL: Routine screening. Personal history of left breast cancer. Comparison is made to exams dated: 06/02/2023 mammogram, 10/17/2020 mammogram, and 10/05/2019 mammogram - [facility]. The breasts are heterogeneously dense, which may obscure small masses (category c / 51-75% glandular tissue). Current study was also evaluated with a Computer Aided Detection (CAD) system. No significant masses, calcifications, or other findings are seen in the breast. There has been no significant interval change. IMPRESSION: NEGATIVE There is no mammographic evidence of malignancy. A 1 year screening mammogram is recommended. This exam was interpreted at Station ID: [id number]. NOTE: For mammograms, a report in lay terms will be sent to the patient. Approximately 15% of breast malignancies will not be visualized mammographically. In the management of a palpable breast mass, a negative mammogram must not discourage biopsy of a clinically suspicious lesion. Electronically Signed By: Saeid goins/ivet:07/03/2024 16:44:40 copy to: R[facility] CONSTANTINO letter sent: Normal Exam ACR BI-RADS Category 1: Negative
== END ==
PROVIDERS: Family Provider Internal Medicine; PCP Internal Medicine; Referring Provider Internal Medicine; Visit Provider Internal Medicine
DX: Z12.31 Encounter for screening mammogram for malignant neoplasm of breast (principal); Z85.3 Personal history of malignant neoplasm of breast; R92.333 Mammographic heterogeneous density, bilateral breasts
CPT/HCPCS: 77063; 77067

== ENCOUNTER → 2024-09-25 15:16 | Outpatient (CLI) | payer MEDICARE, OTHER, SELFPAY ==
[2024-09-25 16:24] LABS: Hematocrit 40.6 % (36-46); Hemoglobin 13.7 g/dL (12.0-16.0); Mean Corpuscular HGB Conc 33.8 % (30-36); Mean Corpuscular Hemoglobin 32.5 PG (26-34); Mean Corpuscular Volume 96.4 fL (80-100); Platelet Count 160 X10^3/uL (150-400); Red Blood Cell Count 4.21 X10^6/uL (4.0-5.2); White Blood Cell Count 4.9 X10^3/uL (4.5-11.0)
[2024-09-25 16:43] LABS: HEMOLYSIS < 15 (0-50); Iron 182 ug/dL (37-170)
[2024-09-25 16:45] LABS: Aspartate Aminotransferase 31 IU/L (14-36); Blood Urea Nitrogen 22 mg/dL (7-17); Calcium 9.4 mg/dL (8.4-10.2); Carbon Dioxide 30 mmol/L (22-32); Chloride 103 mmol/L (98-107); Cholesterol 170 mg/dL (140-199); Estimated Glomerular Filt Rate > 60 mL/min (>60); Glucose 111 mg/dL (80-110); HDL Cholesterol 76 mg/dL (40-60); HEMOLYSIS < 15 (0-50); LDL Cholesterol Calculated 70 mg/dL (<100); Potassium 4.2 mmol/L (3.4-5.1); Sodium 138 mmol/L (137-145); Triglycerides 120 mg/dL (35-150)
[2024-09-25 16:47] LABS: Creatinine Urine Random 78.03 mg/dL
[2024-09-25 16:52] LABS: Microalbumin Urine Random < 0.6 mg/dL (0-1.6)
[2024-09-25 16:56] LABS: Total Iron Binding Capacity 228 ug/dL (265-497); Transferrin 213 mg/dL (206-381)
[2024-09-25 16:58] LABS: Percent Iron Saturation 80 % (15-50)
[2024-09-25 17:00] LABS: Free T3, Triiodothyronine Free 3.51 pg/mL (2.77-5.27)
[2024-09-25 17:18] LABS: Ferritin 78 ng/mL (11-264)
== END ==
PROVIDERS: Family Provider Internal Medicine; PCP Internal Medicine; Referring Provider Internal Medicine; Visit Provider Internal Medicine
DX: E78.2 Mixed hyperlipidemia (principal); E11.69 Type 2 diabetes mellitus with other specified complication; E78.5 Hyperlipidemia, unspecified; E83.110 Hereditary hemochromatosis
CPT/HCPCS: 36415; 80048; 80061; 82043; 82570; 82728; 83540; 83550; 84450; 84481; 85027

== ENCOUNTER → 2024-10-02 09:08 | Outpatient (CLI) | payer MEDICARE, OTHER, SELFPAY ==
[2024-10-02 10:25] LABS: Hemoglobin A1C% w Est Avg Glu 5.9 % (4.0-6.0)
== END ==
PROVIDERS: Family Provider Internal Medicine; PCP Internal Medicine; Referring Provider Internal Medicine; Visit Provider Internal Medicine
DX: E11.69 Type 2 diabetes mellitus with other specified complication (principal); E78.5 Hyperlipidemia, unspecified
CPT/HCPCS: 36415; 83036

== ENCOUNTER → 2024-12-06 11:47 | Outpatient (CLI) | payer MEDICARE, OTHER, SELFPAY ==
[2024-12-06 12:56] LABS: Hematocrit 42.9 % (36-46); Hemoglobin 14.8 g/dL (12.0-16.0); Mean Corpuscular HGB Conc 34.4 % (30-36); Mean Corpuscular Hemoglobin 33.2 PG (26-34); Mean Corpuscular Volume 96.3 fL (80-100); Platelet Count 175 X10^3/uL (150-400); Red Blood Cell Count 4.45 X10^6/uL (4.0-5.2); Red Cell Distribution Width 12.8 % (11.6-14.8); White Blood Cell Count 4.3 X10^3/uL (4.5-11.0)
[2024-12-06 14:19] LABS: Therapeutic Phleb Consent Chec Consent signed @ reg; Zero Check Sebra Scale PASS
[2024-12-06 14:20] LABS: 585 Gram Check PASS; Patient Weight <110 lb NO
[2024-12-06 14:21] LABS: Prediastolic 73 mmHg; Presystolic 136 mmHg; Pulse 57 bpm; Temperature 96.2
[2024-12-06 14:22] LABS: Amount Collected in g 545 g; Amount Collected mL calc 470 mL; Amount to Collect in grams 665 g; Amount to Collect in mL 585 mL; Site of phlebotomy Left antecubital; Therapeutic Phleb Start Time 1400; Therapeutic Phleb Stop Time 1418
[2024-12-06 14:23] LABS: Dizziness N; Postdiastolic BP 71 mmHg; Postsystolic BP 110 mmHg; Swelling N
== END ==
PROVIDERS: Family Provider Internal Medicine; PCP Internal Medicine; Referring Provider Internal Medicine; Visit Provider Internal Medicine
DX: E78.5 Hyperlipidemia, unspecified (principal); E83.110 Hereditary hemochromatosis; E11.69 Type 2 diabetes mellitus with other specified complication
CPT/HCPCS: 85027; 99195

== ENCOUNTER → 2025-04-16 11:50 | Outpatient (CLI) | payer MEDICARE, OTHER, SELFPAY ==
[2025-04-16 12:39] LABS: Hemoglobin A1C% w Est Avg Glu 6.9 % (4.0-6.0)
[2025-04-16 12:59] LABS: HEMOLYSIS < 15 (0-50); Iron 120 ug/dL (37-170)
[2025-04-16 13:08] LABS: Blood Urea Nitrogen 20 mg/dL (7-17); Calcium 9.6 mg/dL (8.4-10.2); Carbon Dioxide 29 mmol/L (22-32); Chloride 100 mmol/L (98-107); Estimated Glomerular Filt Rate > 60 mL/min (>60); Glucose 107 mg/dL (70-99); HEMOLYSIS 16 (0-50); Potassium 4.6 mmol/L (3.4-5.1); Sodium 137 mmol/L (137-145)
[2025-04-16 13:11] LABS: Percent Iron Saturation 46 % (15-50); Total Iron Binding Capacity 263 ug/dL (265-497); Transferrin 237 mg/dL (206-381)
[2025-04-16 13:31] LABS: TSH w/ Reflex to FT4 1.14 uIU/mL (0.47-4.68)
[2025-04-16 13:44] LABS: Ferritin 55 ng/mL (11-264)
[2025-04-16 13:53] LABS: Vitamin B12 Reflex MMA if <400 472 pg/mL (239-931)
== END ==
PROVIDERS: PCP Internal Medicine; Referring Provider Internal Medicine; Visit Provider Internal Medicine
DX: E83.110 Hereditary hemochromatosis (principal); E11.69 Type 2 diabetes mellitus with other specified complication; E78.5 Hyperlipidemia, unspecified; R94.6 Abnormal results of thyroid function studies; E53.8 Deficiency of other specified B group vitamins
CPT/HCPCS: 36415; 80048; 82607; 82728; 83036; 83540; 83550; 84443

== ENCOUNTER → 2025-04-21 10:24 | Outpatient (CLI) | payer MEDICARE, OTHER, SELFPAY ==
--- NOTE | 2025-04-21 10:25 | DI.MRI.S_ITS ---
PROCEDURE: MR HEAD/BRAIN WO CON INDICATIONS: cognitive impairment TECHNIQUE: Non-contrast axial T1 spin echo, axial T2 fast spin echo, sagittal and axial FLAIR, coronal T2 fast spin echo, axial gradient echo, axial diffusion and ADC through the brain. COMPARISON: None. FINDINGS: Image quality: Excellent. CSF spaces: Ventricles appear symmetric in size and shape. Basal cisterns are patent. No extra-axial fluid collections. Brain: No intracranial bleeds or mass effects. Ilkw-dj-[id number] generalized brain parenchymal volume loss is seen, yet without focal abnormal regional volume loss. Moderate chronic small vessel ischemic change is seen. Brainstem appears normal. Diffusion-weighted images show no acute infarct. No chronic ischemic insults. Normal intravascular flow voids are present. Symmetric calcification can be seen involving the basal ganglia, which is considered to be normal for age. Skull and face: Calvarial bone marrow is normal in signal. Orbits are normal. Sinuses: Sinuses and mastoids are clear. IMPRESSION: Note is made of age-appropriate brain parenchymal volume loss and chronic small vessel ischemic changes. Dictated by: Viraj Ziegler M.D. on 04/21/2025 at 10:38 Approved by: Viraj Ziegler M.D. on 04/21/2025 at 10:39
== END ==
LOC: MRI 10:25
PROVIDERS: PCP Internal Medicine; Referring Provider Internal Medicine; Visit Provider Internal Medicine
DX: I63.9 Cerebral infarction, unspecified (principal)
CPT/HCPCS: 70551

== ENCOUNTER → 2025-05-11 14:00 | Outpatient (CLI) | payer MEDICARE, OTHER, SELFPAY | PROVIDERS: PCP Internal Medicine; Visit Provider Chiropractor | DX: R30.0 Dysuria (principal) | CPT/HCPCS: 87077; 87086; 87186 ==

== ENCOUNTER → 2025-06-22 11:01 | Outpatient (CLI) | payer MEDICARE, OTHER, SELFPAY ==
--- NOTE | 2025-06-22 11:03 | DI.RAD.S_ITS ---
PROCEDURE: XR DEXA AXIAL SKELETON INDICATIONS: osteoporosis COMPARISON: [facility], , XR DEXA AXIAL SKELETON, 01/29/2023, 12:18. [facility], CR, XR DEXA AXIAL SKELETON, 10/17/2020, 11:34. FINDINGS: Lumbar Spine: Bone mineral density 0.774 g/cm2, T score -2.5, statistically unchanged. Left Femoral Neck: Bone mineral density is 0.561 g/cm2, T score negative 2.6. Left Hip: Bone mineral density 0.671 g/cm2, T score -2.2, previously -2.3. Fracture Risk Calculation (when applicable): Not reported due to osteoporosis diagnosis. (T score greater or equal to -1.0 to: NORMAL) (T score from -1.1 to -2.4: OSTEOPENIA) (T score less than or equal to -2.5: OSTEOPOROSIS) IMPRESSION: Osteoporosis, statistically unchanged bone mineralization compared with prior. Follow-up guidelines as follows: Osteoporosis: Consider a repeat DEXA and Vertebral Fracture Assessment (VFA) exam in 2 years or sooner if medically necessary, to reassess this patient's status. Osteopenia: Consider a repeat DEXA in 2-3 years to reassess this patient's status, or if there is a new clinical indication. Normal: Consider a repeat DEXA in 5 years or sooner, or if there is a new clinical indication. All treatment decisions require clinical judgment and consideration of individual patient factors, including patient preferences, comorbidities, previous drug use, risk factors not captured in the FRAX model (e.g., frailty, falls, vitamin D deficiency, increased bone turnover, interval significant decline in bone density ) and possible under- or over-estimation of fracture risk by FRAX. In addition, the NOF Guide recommends that FDA-approved medical therapies be considered in postmenopausal women and men age >= 50 years with a: * Hip or vertebral (clinical or morphometric) fracture * T-score of <=-2.5 at the spine or hip * Ten-year fracture probability by FRAX of >= 3% for hip fracture or >=20% for major osteoporotic fracture. Dictated by: Primitivo Crenshaw M.D. on 06/22/2025 at 16:48 Approved by: Primitivo Crenshaw M.D. on 06/22/2025 at 16:49
== END ==
LOC: RAD 11:02
PROVIDERS: PCP Internal Medicine; Referring Provider Internal Medicine; Visit Provider Internal Medicine
DX: M81.0 Age-related osteoporosis without current pathological fracture (principal)
CPT/HCPCS: 77080

== ENCOUNTER → 2025-07-13 11:54 | Outpatient (CLI) | payer MEDICARE, OTHER, SELFPAY ==
[2025-07-13 12:47] LABS: Appearance Urine UA CLEAR; Bilirubin Urine UA NEGATIVE (NEGATIVE); Color Urine UA YELLOW; Glucose Urine UA 3+ g/dL (Negative); Ketones Urine UA TRACE (NEGATIVE); Leukocyte Esterase Urine UA NEGATIVE (NEGATIVE); Nitrite Urine UA NEGATIVE (Negative); Occult Blood Urine UA TRACE-INTACT (Negative); Protein Urine UA NEGATIVE (Negative); Specific Gravity Urine UA 1.010 (1.000-1.035); Urobilinogen Urine UA 0.2 E.U./dL (0.2)
[2025-07-13 12:48] LABS: pH Urine UA 6.0 (4.5-8.0)
[2025-07-13 12:49] LABS: Hematocrit 45.0 % (36-46); Hemoglobin 15.2 g/dL (12.0-16.0); Mean Corpuscular HGB Conc 33.8 % (30-36); Mean Corpuscular Hemoglobin 32.3 PG (26-34); Mean Corpuscular Volume 95.5 fL (80-100); Platelet Count 164 X10^3/uL (150-400)
[2025-07-13 12:53] LABS: Culture Indicated Urine Cult Not Indicated
[2025-07-13 13:05] LABS: Hemoglobin A1C% w Est Avg Glu 6.4 % (4.0-6.0)
[2025-07-13 13:08] LABS: HEMOLYSIS < 15 (0-50); Iron 126 ug/dL (37-170)
[2025-07-13 13:10] LABS: Alanine Aminotransferase 21 IU/L (<35); Albumin 4.7 g/dL (3.5-5.0); Albumin Globulin Ratio 2.0 (1.0-2.8); Alkaline Phosphatase 66 U/L (38-126); Blood Urea Nitrogen 21 mg/dL (7-17); Calcium 9.7 mg/dL (8.4-10.2); Carbon Dioxide 29 mmol/L (22-32); Chloride 102 mmol/L (98-107); Estimated Glomerular Filt Rate > 60 mL/min (>60); Globulin 2.3 g/dL (1.7-4.1); Glucose 109 mg/dL (70-99); HEMOLYSIS < 15 (0-50); Potassium 4.6 mmol/L (3.4-5.1); Sodium 139 mmol/L (137-145); Total Protein 7.0 g/dL (6.3-8.2)
[2025-07-13 13:19] LABS: Percent Iron Saturation 43 % (15-50); Total Iron Binding Capacity 295 ug/dL (265-497); Transferrin 262 mg/dL (206-381)
[2025-07-13 13:44] LABS: Ferritin 61 ng/mL (11-264)
== END ==
PROVIDERS: PCP Internal Medicine; Referring Provider Internal Medicine; Visit Provider Internal Medicine
DX: E78.5 Hyperlipidemia, unspecified (principal); E11.69 Type 2 diabetes mellitus with other specified complication; M81.0 Age-related osteoporosis without current pathological fracture; E78.2 Mixed hyperlipidemia; E83.110 Hereditary hemochromatosis; R30.0 Dysuria; Z87.440 Personal history of urinary (tract) infections
CPT/HCPCS: 36415; 80053; 81001; 82728; 83036; 83540; 83550; 85027